=== PATIENT | female | born 1950 | race Hispanic/Latino ===

== ENCOUNTER 2018-01-13 14:24 | Inpatient (IN) | payer MEDICARE, OTHER ==
[2018-01-13 14:37] VITALS: BMI 24.2
[2018-01-13 15:25] LABS: VENOUS BLOOD GAS BASE EXCESS 6.9 mmol/L (0.0-2.0); VENOUS BLOOD GAS PO2 45 mm/Hg (30-55); VENOUS BLOOD PH 7.37 (7.32-7.43)
[2018-01-13 15:26] LABS: BASO # 0.03 K/mm3 (0.0-2.0); BASO % 0.4 % (0.0-3.0); EOS # 0.2 (0.0-0.7); EOS % 2.1 % (1.5-5.0); GRAN # 5.11 (1.4-6.5); GRAN % 65.7 % (50.0-68.0); HEMOGLOBIN 11.4 g/dL (12.0-16.0); LYMPH # 1.3 (1.2-3.4); LYMPH % 16.6 % (22.0-35.0); MEAN CELL VOLUME 85.9 fl (80.0-105.0); MEAN CORPUSCULAR HEMOGLOBIN 29.2 pg (25.0-35.0); MONO # 1.2 (0.1-0.6); MONO % 15.2 % (1.0-6.0); RBC 3.9 10^6/uL (3.5-6.1); RED CELL DISTRIBUTION WIDTH 13.5 % (11.5-14.5); WHITE BLOOD COUNT 7.8 10^3/ul (4.5-11.0)
[2018-01-13 15:37] LABS: INR 1.08 (0.93-1.08); PARTIAL THROMBOPLASTIN TIME 25.9 Seconds (25.1-36.5); PROTHROMBIN TIME 12.3 SECONDS (9.4-12.5)
[2018-01-13 15:52] LABS: B-TYPE NATRIURETIC PEPTIDE 883 pg/mL (0-450); TROPONIN I < 0.01 ng/mL
[2018-01-13 16:00] LABS: ALB/GLOB RATIO 1.2 (1.1-1.8); ALBUMIN 3.7 g/dL (3.0-4.8); ALT/SGPT 35 U/L (7-56); AST/SGOT 19 U/L (14-36); BLOOD UREA NITROGEN 19 mg/dL (7-21); GFR AFRICAN-AMERICAN > 60; GFR NON-AFRICAN AMERICAN > 60
--- NOTE | 2018-01-13 16:02 | RAD ---
HISTORY: SOB COMPARISON: 11/12/2017 FINDINGS: LUNGS: No active pulmonary disease. PLEURA: No significant pleural effusion identified, no pneumothorax apparent. CARDIOVASCULAR: Normal. OSSEOUS STRUCTURES: No significant abnormalities. VISUALIZED UPPER ABDOMEN: Normal. OTHER FINDINGS: None. IMPRESSION: No active disease.
[2018-01-13] MEDS ORDERED: Magnesium Sulfate 2 gm/50 ml 2 GM/50 ML BAG IVPB ONE (16:07)
[2018-01-13 16:28] LABS: URINE BILIRUBIN NEGATIVE (NEGATIVE); URINE BLOOD NEGATIVE (NEGATIVE); URINE GLUCOSE (UA) NEGATIVE (NEGATIVE); URINE LEUKOCYTE ESTERASE NEGATIVE Leu/uL (NEGATIVE); URINE PROTEIN NEGATIVE mg/dL (<30 mg/dL); URINE UROBILINOGEN 0.2 E.U./dL (<1 E.U./dL)
[2018-01-13 16:29] LABS: URINE APPEARANCE CLEAR (CLEAR); URINE COLOR YELLOW (YELLOW)
[2018-01-13 16:48] LABS: FREE T4 6.12 ng/dL (0.78-2.19)
--- NOTE | 2018-01-13 17:20 | ED PDOC ---
Arrival/HPI - General Chief Complaint: Weakness/Neurological Deficit Time Seen by Provider: 01/13/18 14:43 Historian: Patient - History of Present Illness Narrative History of Present Illness (Text): 01/13/18 17:11 67yo female with pmhx hypertension, hyperlipdemia referred to ED by Dr. Arguelles for evaluation of HASSAN x weeks and sudden drop of BP and generalized weakness today. Patient reports Parathyroidectomy a week ago. States HASSAN is getting worse. Denies chest pain, fever, chills, diaphoresis, nausea, abdominal pain, urinary symptoms, focal weakness, recent travel, any other complaint. Past Medical History - Provider Review Nursing Documentation Reviewed: Yes - Cardiac Hx Cardiac Disorders: Yes Hx Hypertension: Yes - Pulmonary Hx Respiratory Disorders: No - Neurological Hx Neurological Disorder: Yes Hx Alzheimer's Disease: No Hx Transient Ischemic Attacks (TIA): Yes - HEENT Hx HEENT Disorder: No - Renal Other/Comment: hyponatremia - Endocrine/Metabolic Hx Endocrine Disorders: Yes Other/Comment: Parathyroidectomy 01/07/18 - Hematological/Oncological Hx Blood Disorders: No - Integumentary Hx Dermatological Disorder: No - Musculoskeletal/Rheumatological Hx Falls: Yes - Gastrointestinal Hx Gastrointestinal Disorders: No - Genitourinary/Gynecological Hx Genitourinary Disorders: No - Psychiatric Hx Psychophysiologic Disorder: No Hx Depression: No Hx Emotional Abuse: No Hx Physical Abuse: No Hx Substance Use: No - Surgical History Hx Orthopedic Surgery: Yes (right arm) Hx Parathyroidectomy: Yes (01/07/18) - Suicidal Assessment Feels Threatened In Home Enviroment: No Family/Social History - Physician Review Nursing Documentation Reviewed: Yes Family/Social History: Unknown Family HX Smoking Status: Former Smoker Hx Alcohol Use: No Hx Substance Use: No Hx Substance Use Treatment: No Allergies/Home Meds Allergies/Adverse Reactions: Allergies codeine Allergy (Verified 01/06/16 16:56) NAUSEA moxifloxacin [From Avelox] Allergy (Verified 01/13/18 15:28) ANAPHYLAXIS oxycodone HCl [From Percocet] Allergy (Verified 01/06/16 16:56) NAUSEA Home Medications: Home Meds Medication Instructions Recorded Confirmed Atorvastatin [Lipitor] 1 tab PO DAILY 12/19/15 01/13/18 Aspirin [Aspirin Chewable] 81 mg PO DAILY 12/21/15 01/13/18 Carvedilol [Coreg] 12.5 mg PO BID 01/13/18 01/13/18 Review of Systems - Physician Review All systems were reviewed & negative as marked: Yes - Review of Systems Constitutional: Normal Eyes: Normal ENT: Normal Respiratory: Normal Cardiovascular: HASSAN. absent: Chest Pain Gastrointestinal: Normal Genitourinary Female: Normal Musculoskeletal: Normal Skin: Normal Neurological: Normal Endocrine: Normal Hemo/Lymphatic: Normal Psychiatric: Normal Physical Exam Vital Signs Reviewed: Yes Vital Signs Temp Pulse Resp BP Pulse Ox 01/13/18 18:43 100 H 18 126/65 99 01/13/18 15:15 98.3 F 93 H 20 140/77 95 Temperature: Afebrile Blood Pressure: Normal Pulse: Regular Respiratory Rate: Normal Appearance: Positive for: Well-Appearing, Non-Toxic, Comfortable Pain Distress: None Mental Status: Positive for: Alert and Oriented X 3 - Systems Exam Head: Present: Atraumatic, Normocephalic Pupils: Present: PERRL Extroacular Muscles: Present: EOMI Conjunctiva: Present: Normal Mouth: Present: Moist Mucous Membranes Neck: Present: Normal Range of Motion Respiratory/Chest: Present: Clear to Auscultation, Good Air Exchange. No: Respiratory Distress, Accessory Muscle Use, Wheezes, Decreased Breath Sounds, Rales, Retracting, Rhonchi Cardiovascular: Present: Regular Rate and Rhythm, Normal S1, S2. No: Murmurs Abdomen: No: Tenderness, Distention, Peritoneal Signs Back: Present: Normal Inspection Upper Extremity: Present: Normal Inspection. No: Cyanosis, Edema Lower Extremity: Present: Normal Inspection. No: Edema Neurological: Present: GCS=15, CN II-XII Intact, Speech Normal Skin: Present: Warm, Dry, Normal Color. No: Rashes Psychiatric: Present: Alert, Oriented x 3, Normal Insight, Normal Concentration Medical Decision Making - Lab Interpretations Lab Results: 01/13/18 15:21 01/13/18 15:21 Lab Results 01/13/18 16:17: Free T4 6.12 H, TSH 3rd Generation < 0.02 L 01/13/18 16:17: Urine Color Yellow, Urine Appearance Clear, Urine pH 6.0, Ur Specific [place] 1.010, Urine Protein Negative, Urine Glucose (UA) Negative, Urine Ketones Trace H, Urine Blood Negative, Urine Nitrate Negative, Urine Bilirubin Negative, Urine Urobilinogen 0.2, Ur Leukocyte Esterase Negative 01/13/18 15:21: Sodium 133, Chloride 90 L, Potassium 3.7, Carbon Dioxide 30, Anion Gap 17, BUN 19, Creatinine 0.8, Est GFR ( Amer) > 60, Est GFR (Non- Af Amer) > 60, Random Glucose 103, Calcium 9.0, Magnesium 0.8 L*, Total Bilirubin 0.6, AST 19, ALT 35, Alkaline Phosphatase 72, Lactate Dehydrogenase 477, Total Creatine Kinase 38, Troponin I < 0.01, NT-Pro-B Natriuret Pep 883 H, Total Protein 6.8, Albumin 3.7, Globulin 3.1, Albumin/Globulin Ratio 1.2 01/13/18 15:21: pO2 45, VBG pH 7.37, VBG pCO2 59.0, VBG HCO3 34.1 H, VBG Total CO2 35.9 H, VBG O2 Sat (Calc) 82.2 H, VBG Base Excess 6.9 H, VBG Potassium 3.8, Sodium 131.0 L, Chloride 91.0 L, Glucose 105, Lactate 1.3, FiO2 21.0, Venous Blood Potassium 3.8 01/13/18 15:21: PT 12.3, INR 1.08, APTT 25.9, D-Dimer, Quantitative 521 H 01/13/18 15:21: WBC 7.8, RBC 3.90, Hgb 11.4 L, Hct 33.5 L, MCV 85.9, MCH 29.2, MCHC 34.0, RDW 13.5, Plt Count 297, MPV 10.0, Gran % 65.7, Lymph % (Auto) 16.6 L , [place] % (Auto) 15.2 H, Eos % (Auto) 2.1, Baso % (Auto) 0.4, Gran # 5.11, Lymph # (Auto) 1.3, [place] # (Auto) 1.2 H, Eos # (Auto) 0.2, Baso # (Auto) 0.03 - RAD Interpretation Radiology Orders: 01/13/18 14:52 CHEST PORTABLE [RAD] Stat 01/13/18 16:32 ANGIO CHEST PE PROTOCOL [CT] Stat 01/13/18 17:30 THYROID [US] Stat - Medication Orders Current Medication Orders: Acetaminophen (Tylenol 325mg Tab) 650 mg PO Q6 PRN PRN Reason: Pain, Mild (1-3) Amlodipine Besylate (Norvasc) 5 mg PO DAILY [facility] Aspirin (Aspirin Chewable) 81 mg PO DAILY [facility]SE MIGUEL Atorvastatin Calcium (Lipitor) 20 mg PO DAILY [facility] Carvedilol (Coreg) 6.25 mg PO BID [facility] Enoxaparin Sodium (Lovenox) 40 mg SC DAILY JOSE MIGUEL PRN Reason: Protocol Furosemide (Lasix) 40 mg PO DAILY JOSE MIGUEL Magnesium Oxide (Mag-Ox) 400 mg PO BID [facility]SE MIGUEL Discontinued Medications Furosemide (Lasix) 40 mg IVP STAT STA Stop: 01/13/18 18:11 Magnesium Sulfate (Magnesium Sulfate 2 Gm/50 Ml Water) 2 gm in 50 mls @ 50 mls/ hr IVPB ONCE ONE Stop: 01/13/18 17:06 Magnesium Oxide (Mag-Ox) 800 mg PO STAT STA Stop: 01/13/18 18:08 Disposition/Present on Arrival - Present on Arrival Any Indicators Present on Arrival: No History of DVT/PE: Yes History of Uncontrolled Diabetes: Yes Urinary Catheter: Yes History of Decub. Ulcer: No History Surgical Site Infection Following: None - Disposition Have Diagnosis and Disposition been Completed?: Yes Diagnosis: Hypomagnesemia, COPD (chronic obstructive pulmonary disease) Disposition: HOSPITALIZED Disposition Time: 17:15 Patient Plan: Admission Condition: STABLE
[2018-01-13] MEDS ORDERED: Iohexol 350 MG/100 ML VIAL ONE (17:56)
[2018-01-13] MEDS ORDERED: Magnesium Oxide 400 mg Tab UD PO STA (18:07)
--- NOTE | 2018-01-13 18:32 | CP.PCM.HP ---
History of Present Illness - History of Present Illness History of Present Illness: 67 year old female with a past medical history of hypertension, dyslipidemia, hypercalcemia secondary hyperparathyroidism s/p removal of two parathyroid adenomas on 01/07/18 who presents with generalized weakness and nausea for the past three days. She also complains of exertional dyspnea for the past 6 months with only being able to walk only one block before experiencing dyspnea and having to rest for a few minutes to catch her breath. She also reports expericing chest pain from time to time with exertion. Today she went to her PMD 's office, Dr. Arguelles, for evaluation of her generalized weakness and after she noted a blood pressure reading of 88/40 yesterday. She aptly did not take her usual antihypertensive medications, aside from the Coreg. She also had an EKG performed in her PMD that was showed changes compared to prior. She denies any headache, fever, chills, vomiting, changes in bowel movement, muscle twitches or sensory or motor disturbances/deficits. PMH: hypertension, dyslipidemia, hypercalcemia secondary to hyperparathyroidism , ex-smoker with an estimated 60 pack year history, and GERD Past Surgical History: right humerus fracture with repair and removal of 2 parathyroid glands/adenomas Allergies: Codeine, Moxifloxacin, oxycodone Social: former smoker with an estimated 60 pack year history, denies alcohol, or illicit drug use Present on Admission - Present on Admission Any Indicators Present on Admission: No Review of Systems - Review of Systems All systems: reviewed and no additional remarkable complaints except (as per HPI ) Past Patient History - Past Social History Smoking Status: Former Smoker - CARDIAC Hx Cardiac Disorders: Yes Hx Hypertension: Yes - PULMONARY Hx Respiratory Disorders: No - NEUROLOGICAL Hx Neurological Disorder: Yes Hx Alzheimer's Disease: No Hx Transient Ischemic Attacks (TIA): Yes - HEENT Hx HEENT Problems: No - RENAL Other/Comment: hyponatremia - ENDOCRINE/METABOLIC Hx Endocrine Disorders: Yes Other/Comment: Parathyroidectomy 01/07/18 - HEMATOLOGICAL/ONCOLOGICAL Hx Blood Disorders: No - INTEGUMENTARY Hx Dermatological Problems: No - MUSCULOSKELETAL/RHEUMATOLOGICAL Hx Falls: Yes - GASTROINTESTINAL Hx Gastrointestinal Disorders: No - GENITOURINARY/GYNECOLOGICAL Hx Genitourinary Disorders: No - PSYCHIATRIC Hx Psychophysiologic Disorder: No Hx Depression: No Hx Emotional Abuse: No Hx Physical Abuse: No Hx Substance Use: No - SURGICAL HISTORY Hx Orthopedic Surgery: Yes (right arm) Hx Parathyroidectomy: Yes (01/07/18) Meds Allergies/Adverse Reactions: Allergies Allergy/AdvReac Type Severity Reaction Status Date / Time codeine Allergy NAUSEA Verified 01/06/16 16:56 moxifloxacin [From Avelox] Allergy ANAPHYLAXIS Verified 01/13/18 15:28 oxycodone HCl [From Percocet] Allergy NAUSEA Verified 01/06/16 16:56 Physical Exam - Constitutional Appears: Non-toxic, No Acute Distress - Head Exam Head Exam: ATRAUMATIC, NORMOCEPHALIC - Eye Exam Eye Exam: EOMI, Normal appearance - ENT Exam ENT Exam: Mucous Membranes Moist - Neck Exam Additional comments: transverse incision 3 inches located above suprasternal notch - Respiratory Exam Respiratory Exam: Decreased Breath Sounds (lung bases bilaterally). absent: Accessory Muscle Use - Cardiovascular Exam Cardiovascular Exam: Tachycardia, +S1, +S2 - GI/Abdominal Exam GI & Abdominal Exam: Normal Bowel Sounds, Soft - Extremities Exam Extremities exam: Positive for: normal inspection. Negative for: calf tenderness - Neurological Exam Neurological exam: Alert, CN II-XII Intact, Oriented x3 - Psychiatric Exam Psychiatric exam: Normal Affect, Normal Mood - Skin Skin Exam: Dry, Intact, Normal Color, Warm Results - Vital Signs Recent Vital Signs: Last Vital Signs Temp 98.3 F 01/13/18 15:15 Pulse 93 H 01/13/18 15:15 Resp 20 01/13/18 15:15 BP 140/77 01/13/18 15:15 Pulse Ox 95 01/13/18 15:15 - Labs Result Diagrams: 01/13/18 15:21 01/13/18 15:21 Assessment & Plan - Assessment and Plan (Free Text) Assessment: 67 year old female with a past medical history of hypertension, dyslipidemia, hypercalcemia secondary to hyperparathyroidism s/p removal of two parathyroidectomy on 01/07/18, and GERD who presents with 6 months of exertional dyspnea, associated chest pain, and 5 days of generalized weakness. Initial diagnostic test revealed a D-dimer of 521, NT-Pro-BNP of 883, Magnesium of 0.8, Thyroxine of 6.12, and a TSH less than 0.02. Plan: 1) Chest pain rule out ACS - EKG showed sinus rhythm with premature atrial complexes with aberrant conduction and possible atrial enlargement - Troponin x1 negative, repeat x 2 - Cardiology consulted, Dr. Velez 2) Rule out new-onset CHF - Pro-BNP elevated at 883 in the ED - Lasix 40 mg IVP given in the ED - Cardiology consulted, Dr. Velez 3) Elevated D-dimer - CT per PE protocol negative for pulmonary embolus but reads as follows: PULMONARY ARTERIES: Unremarkable. No pulmonary embolism. AORTA: No acute findings. No thoracic aortic aneurysm. LUNGS: Although no infiltrate is appreciate bilaterally, a 6.6 x 3.4 cm mass is seen at the right lower lobe base within the posterior costophrenic sulcus clearly above the diaphragm and posterior to it but of uncertain etiology. This may represent extramedullary hematopoiesis with pulmonary neoplasm not favored but not completely excluded. Dense atelectasis is a limited possibility as well. No air bronchograms associated to suggest pneumonia. No definite left pulmonary mass. Central airways appear clear. PLEURAL SPACES: Unremarkable. No effusion or pneuomothorax. HEART: Unremarkable. No cardiomegaly. No significant pericardial effusion. LYMPH NODES: No significant lymphadenopathy. Shotty paratracheal lymph nodes are identified. BONES, CHEST WALL: Unremarkable. No fracture or destructive lesion OTHER FINDINGS: Moderate hiatal hernia at the inferior middle centrilobular emphysematous changes are identified, apical predominant without definitive discrete mass identified. Mediastinum. IMPRESSION: 1. No CT evidence of pulmonary embolus. 2. 6.6 cm mass is seen in the right lung in the posterior sulcus nonspecific in appearance. Please see different diagnosis above. Neoplasm not favored but is not excluded here. Further clinical correlation is recommended. 3. Centrilobular emphysema and COPD identified. 4) Hypertension - Coreg 6.25 mg BID - Amlodipine 5 mg (held) 5) Dyslipidemia - Continue atorvastatin 20 mg HS 6) Primary prevention - Aspirin 81 mg PO daily 7) Elevated thyroxine and low TSH after parathyroid removal - thyroid US 8) Underlying COPD - Will further discuss this with the patient 9) Hypomagnesemia - 2 gram IVP given in ED - Magnesium Oxide 400 mg BID daily 10) DVT/GI prophylaxis - Lovenox 40 mg SC daily - Protonix 40 mg PO daily Case reviewed and discussed with attending physician Dr. Hussein 1 - Date & Time Date: 01/13/18 Time: 19:37
--- NOTE | 2018-01-13 18:43 | CT ---
PROCEDURE: CT Chest with contrast (Pulmonary Angiogram) HISTORY: HASSAN COMPARISON: None available. TECHNIQUE: Axial computed tomography images were obtained of the chest in the pulmonary arterial phase of enhancement. Coronal and sagittal reformatted images were created and reviewed. Intravenous contrast dose: Omnipaque 350, 96 cc Radiation dose: Total exam DLP = 351.48 mGy-cm. This CT exam was performed using one or more of the following dose reduction techniques: Automated exposure control, adjustment of the mA and/or kV according to patient size, and/or use of iterative reconstruction technique. FINDINGS: PULMONARY ARTERIES: Unremarkable. No pulmonary embolism. AORTA: No acute findings. No thoracic aortic aneurysm. LUNGS: Although no infiltrate is appreciate bilaterally, a 6.6 x 3.4 cm mass is seen at the right lower lobe base within the posterior costophrenic sulcus clearly above the diaphragm and posterior to it but of uncertain etiology. This may represent extramedullary hematopoiesis with pulmonary neoplasm not favored but not completely excluded. Dense atelectasis is a limited possibility as well. No air bronchograms associated to suggest pneumonia. No definite left pulmonary mass. Central airways appear clear. PLEURAL SPACES: Unremarkable. No effusion or pneuomothorax. HEART: Unremarkable. No cardiomegaly. No significant pericardial effusion. LYMPH NODES: No significant lymphadenopathy. Shotty paratracheal lymph nodes are identified. BONES, CHEST WALL: Unremarkable. No fracture or destructive lesion OTHER FINDINGS: Moderate hiatal hernia at the inferior middle centrilobular emphysematous changes are identified, apical predominant without definitive discrete mass identified. Mediastinum. IMPRESSION: 1. No CT evidence of pulmonary embolus. 2. 6.6 cm mass is seen in the right lung in the posterior sulcus nonspecific in appearance. Please see different diagnosis above. Neoplasm not favored but is not excluded here. Further clinical correlation is recommended. 3. Centrilobular emphysema and COPD identified.
[2018-01-13] MEDS ORDERED: Albuterol-Ipratrop 3 mg / 0.5 (3 ml) UD IH STA (18:47)
[2018-01-14] MEDS: Pantoprazole 20 mg EC Tab PO SCH (06:00)
[2018-01-14 07:27] LABS: BASO # 0.02 K/mm3 (0.0-2.0); BASO % 0.3 % (0.0-3.0); EOS # 0.3 (0.0-0.7); GRAN % 57.6 % (50.0-68.0); HEMOGLOBIN 10.7 g/dL (12.0-16.0); LYMPH # 1.2 (1.2-3.4); LYMPH % 17.8 % (22.0-35.0); MEAN CORPUSCULAR HEMOGLOBIN 29.1 pg (25.0-35.0); MEAN CORPUSCULAR HGB CONC 33.4 g/dl (31.0-37.0); MONO # 1.4 (0.1-0.6); MONO % 20.3 % (1.0-6.0); PLATELET COUNT 269 10^3/uL (120.0-450.0); RBC 3.68 10^6/uL (3.5-6.1); RED CELL DISTRIBUTION WIDTH 13.6 % (11.5-14.5); WHITE BLOOD COUNT 6.8 10^3/ul (4.5-11.0)
[2018-01-14 07:37] LABS: ALB/GLOB RATIO 1.2 (1.1-1.8); ALBUMIN 3.6 g/dL (3.0-4.8); ALT/SGPT 30 U/L (7-56); AST/SGOT 20 U/L (14-36); BLOOD UREA NITROGEN 16 mg/dL (7-21); CALCIUM 9.6 mg/dL (8.4-10.5); GFR AFRICAN-AMERICAN > 60; GFR NON-AFRICAN AMERICAN 55
[2018-01-14] MEDS ORDERED: Albuterol-Ipratrop 3 mg / 0.5 (3 ml) UD IH PRN (07:48)
--- NOTE | 2018-01-14 08:20 | CARD ---
APPROVED REPORT EKG Measurement Heart [id number] <Conclusion> Sinus rhythm with premature atrial complexes with aberrant conduction Possible Left atrial enlargement Borderline ECG
[2018-01-14 09:11] LABS: NEUTROPHIL 67 % (50.0-70.0)
[2018-01-14 09:12] LABS: BASOPHIL 1 % (0.0-1.0); EOSINOPHIL 5 % (0.0-3.0); LYMPHOCYTE 15 % (22.0-35.0); MONOCYTE 12 % (1.0-6.0); PLATELET ESTIMATE NORMAL (NORMAL)
[2018-01-14] MEDS: Calcium-Vit D 250 mg-125 Units Tab UD PO SCH ×2 (09:22→18:43)
[2018-01-14] MEDS: Enoxaparin 40 mg Syringe SC SCH (09:22)
[2018-01-14] MEDS ORDERED: Aminophylline 25 mg/ml Inj ONE (09:36)
--- NOTE | 2018-01-14 09:38 | CARD ---
APPROVED REPORT EXAM: Two-dimensional and M-mode echocardiogram with Doppler and color Doppler. INDICATION Dyspnea EF 2D DIMENSIONS Left Atrium (2D)2.9 (1.6-4.0cm)IVSd0.9 (0.7-1.1cm) LVDd3.1 (3.9-5.9cm)PWd1.0 (0.7-1.1cm) LVDs2.2 (2.5-4.0cm)FS (%) 28.9 % LVEF (%)57.1 (>50%) M-Mode DIMENSIONS Aortic Root2.80 (2.2-3.7cm)Aortic Cusp Exc.1.40 (1.5-2.0cm) Aortic Valve AoV Peak Skvlfkai791.0cm/[place] Peak GR.19mmHg Mitral Valve MV E Pvvnorhj02.3cm/sMV A Pwuhycyu653.0cm/sE/A ratio0.8 TDI E/Lateral E'0.0E/Medial E'0.0 Tricuspid Valve TR Peak [id number] [id number] Peak Gr.54mmHg [id number] LEFT VENTRICLE There is borderline concentric left ventricular hypertrophy. The left ventricular function is normal. The left ventricular ejection fraction is within the normal range. RIGHT VENTRICLE The right ventricle is normal size. ATRIA The left atrium is mildly dilated. The right atrium size is normal. AORTIC VALVE The aortic valve is calcified but opens well. MITRAL VALVE The mitral valve is thickened but opens well. TRICUSPID VALVE The tricuspid valve leaflets are thickened , but open well. There is mild to moderate tricuspid regurgitation. There is moderate pulmonary hypertension. PULMONIC VALVE The pulmonic valve is not well visualized. PERICARDIAL EFFUSION There is no pericardial effusion. <Conclusion> Good LV systolic function Borderline LVH AoV sclerosis without stenosis DIlated LA Moderate TR Moderate pulmonary hypertension
[2018-01-14] MEDS ORDERED: Magnesium Sulfate 2 GM in Sodium Chloride 0.9% 100 ML IV ONE (09:49)
[2018-01-14] MEDS ORDERED: Magnesium Sulfate 2 gm/50 ml 2 GM/50 ML BAG IV ONE (09:55)
[2018-01-14] MEDS ORDERED: Magnesium Oxide 400 mg Tab UD PO SCH (10:00)
[2018-01-14] MEDS ORDERED: Calcium-Vit D 250 mg-125 Units Tab UD PO SCH (10:00)
[2018-01-14] MEDS ORDERED: Magnesium Sulfate 2 gm/50 ml 2 GM/50 ML BAG IVPB ONE (10:03)
--- NOTE | 2018-01-14 17:05 | CP.PCM.PN ---
<Maxi Cole - Last Filed: 01/14/18 19:27> Subjective - Date & Time of Evaluation Date of Evaluation: 01/14/18 Time of Evaluation: 17:21 - Subjective Subjective: Maxi Cole DO, PGY-1: Hospitalist Service Patient seen and examined at bedside. Patient reports still feeling weak and has some nausea also. She is aware of the plan to undergo a transthoracic echocardiogram, nuclear stress test, and also a biopsy of the right lung mass identified on CT. She is also NPO. Nurse report no untoward events overnight. Objective - Vital Signs/Intake and Output Vital Signs (last 24 hours): Temp Pulse Resp BP Pulse Ox 98.0 F 95 H 20 137/54 L 95 01/14/18 06:00 01/14/18 06:00 01/14/18 06:00 01/14/18 06:00 01/14/18 06:00 - Medications Medications: Current Medications Acetaminophen (Tylenol 325mg Tab) 650 mg PO Q6 PRN PRN Reason: Pain, Mild (1-3) Last Admin: 01/14/18 05:58 Dose: 650 mg Albuterol/Ipratropium (Duoneb 3 Mg/0.5 Mg (3 Ml) Ud) 3 ml IH [id number] PRN PRN Reason: Shortness of Breath Aspirin (Aspirin Chewable) 81 mg PO DAILY [facility] Last Admin: 01/14/18 09:21 Dose: Not Given Atorvastatin Calcium (Lipitor) 20 mg PO DAILY [facility] Last Admin: 01/14/18 09:22 Dose: Not Given Calcium/Vitamin D (Oscal-D 250 Mg-125 Units Tab) 2 tab PO BID [facility] Last Admin: 01/14/18 09:22 Dose: Not Given Carvedilol (Coreg) 6.25 mg PO BID [facility] Last Admin: 01/14/18 09:21 Dose: Not Given Enoxaparin Sodium (Lovenox) 40 mg SC DAILY [facility] PRN Reason: Protocol Last Admin: 01/14/18 09:22 Dose: Not Given Furosemide (Lasix) 40 mg PO DAILY [facility] Last Admin: 01/14/18 09:21 Dose: Not Given Methimazole (Tapazole) 10 mg PO TID [facility] Last Admin: 01/14/18 13:32 Dose: 10 mg Pantoprazole Sodium (Protonix Ec Tab) 20 mg PO 0600 [facility] Last Admin: 01/14/18 06:00 Dose: 20 mg - Labs Labs: PT 12.3 SECONDS (9.4-12.5) 01/13/18 15:21 INR 1.08 (0.93-1.08) 01/13/18 15:21 APTT 25.9 Seconds (25.1-36.5) 01/13/18 15:21 - Constitutional Appears: Non-toxic - Head Exam Head Exam: ATRAUMATIC, NORMOCEPHALIC - Eye Exam Eye Exam: EOMI, Normal appearance - ENT Exam ENT Exam: Mucous Membranes Moist, Normal Oropharynx - Neck Exam Additional comments: surgical incision noted above suprasternal notch - Respiratory Exam Respiratory Exam: Prolonged Expiratory Phase - Cardiovascular Exam Cardiovascular Exam: RRR, +S1, +S2 - GI/Abdominal Exam GI & Abdominal Exam: Soft, Normal Bowel Sounds - Extremities Exam Extremities Exam: Normal Inspection. absent: Calf Tenderness - Neurological Exam Neurological Exam: Alert, Awake, Oriented x3 Neuro motor strength exam: Left Upper Extremity: 5, Right Upper Extremity: 5, Left Lower Extremity: 5, Right Lower Extremity: 5 - Psychiatric Exam Psychiatric exam: Normal Affect, Normal Mood - Skin Skin Exam: Dry, Intact, Normal Color, Warm Assessment and Plan - Assessment and Plan (Free Text) Assessment: 67 year old female with a past medical history of hypertension, dyslipidemia, hypercalcemia secondary to hyperparathyroidism s/p removal of two parathyroidectomy on 01/07/18, and GERD who presents with 6 months of exertional dyspnea, associated chest pain, and 5 days of generalized weakness. Initial diagnostic test revealed a D-dimer of 521, NT-Pro-BNP of 883, Magnesium of 0.8, Thyroxine of 6.12, and a TSH less than 0.02. Plan: 1) Chest pain rule out ACS - EKG showed sinus rhythm with premature atrial complexes with aberrant conduction and possible atrial enlargement - Troponin x3 negative - Cardiology consulted, Dr. Velez - Nuclear stress test performed, interpretation pending 2) Rule out CHF - Pro-BNP elevated at 883 in the ED - Lasix 40 mg PO Daily - Echocardiogram shows good systolic function with estimated ejection fraction of 57%, borderline Left Ventricular Hypertrophy, Aortic valve sclerosis without stenosis, dilated left atrium, moderate tricuspid regurgitation, moderate pulmonary hypertension. - Cardiology consulted, Dr. Velez 3) Elevated D-dimer - CT per PE protocol negative for pulmonary embolus but reads as follows: PULMONARY ARTERIES: Unremarkable. No pulmonary embolism. AORTA: No acute findings. No thoracic aortic aneurysm. LUNGS: Although no infiltrate is appreciate bilaterally, a 6.6 x 3.4 cm mass is seen at the right lower lobe base within the posterior costophrenic sulcus clearly above the diaphragm and posterior to it but of uncertain etiology. This may represent extramedullary hematopoiesis with pulmonary neoplasm not favored but not completely excluded. Dense atelectasis is a limited possibility as well. No air bronchograms associated to suggest pneumonia. No definite left pulmonary mass. Central airways appear clear. PLEURAL SPACES: Unremarkable. No effusion or pneuomothorax. HEART: Unremarkable. No cardiomegaly. No significant pericardial effusion. LYMPH NODES: No significant lymphadenopathy. Shotty paratracheal lymph nodes are identified. BONES, CHEST WALL: Unremarkable. No fracture or destructive lesion OTHER FINDINGS: Moderate hiatal hernia at the inferior middle centrilobular emphysematous changes are identified, apical predominant without definitive discrete mass identified. Mediastinum. IMPRESSION: - No CT evidence of pulmonary embolus. - 6.6 cm mass is seen in the right lung in the posterior sulcus nonspecific in appearance. Please see different diagnosis above. Neoplasm not favored but is not excluded here. Further clinical correlation is recommended. - Centrilobular emphysema and COPD identified. 4) Right lower lobe lung mass (identified by CT) - Dr. Raul Perez to perform CT-guided biopsy - Chest X-ray ordered following procedure 5) Hypertension - Coreg 6.25 mg BID - Amlodipine 5 mg 6) Dyslipidemia - Continue atorvastatin 20 mg HS 6) Primary prevention - Aspirin 81 mg PO daily 7) Elevated thyroxine and low TSH after parathyroid surgery - Thyroid US Impression: as Potential trace seroma tear or chronic hematomas are seen in the periphery of both left and right thyroid lobes with abscesses not favored. History of the patient reveals recently underwent parathyroidectomy. Consider postoperative change. Multiple nodules are scattered at the bilateral thyroid lobes with dominant nodules as described above. Numerous nodules are more frequent at the right than left sides. Clinically correlate. Consider ultrasound follow-up as indicated. - Dr. Finley, campus administrator, consulted, who started patient on Methimazole 10 mg TID - Follow up TSH, Free T4, thyroid peroxidase antibodies, T3 and TSI 8) Underlying COPD clinically and based on imaging - Duoneb q4h PRN for shortness of breath - Pulmonology consulted, Dr. Kevin Bautista 9) Hypo/hypermagnesemia - Recheck in AM - Replete as needed 10) Calcium and Vitamin D therapy s/p parathyroidectomy - Continue home medication - 11) DVT/GI prophylaxis - Lovenox 40 mg SC - Protonix 20 mg PO daily Case reviewed and discussed with attending physician, Dr. Cr <Abdulkadir Cr - Last Filed: 01/15/18 07:17> Objective - Vital Signs/Intake and Output Vital Signs (last 24 hours): Temp Pulse Resp BP Pulse Ox 98.7 F 95 H 20 149/74 96 01/15/18 06:00 01/15/18 06:00 01/15/18 06:00 01/15/18 06:00 01/15/18 06:00 Intake and Output: 01/15/18 01/15/18 06:59 18:59 Intake Total 420 Balance 420 - Medications Medications: Current Medications Acetaminophen (Tylenol 325mg Tab) 650 mg PO Q6 PRN PRN Reason: Pain, Mild (1-3) Last Admin: 01/14/18 18:47 Dose: 650 mg Albuterol/Ipratropium (Duoneb 3 Mg/0.5 Mg (3 Ml) Ud) 3 ml IH Q2H PRN PRN Reason: Shortness of Breath Albuterol/Ipratropium (Duoneb 3 Mg/0.5 Mg (3 Ml) Ud) 3 ml IH TIDRESP [facility] Aspirin (Aspirin Chewable) 81 mg PO DAILY [facility] Last Admin: 01/14/18 09:21 Dose: Not Given Atorvastatin Calcium (Lipitor) 20 mg PO DAILY [facility] Last Admin: 01/14/18 09:22 Dose: Not Given Budesonide (Pulmicort Respules) 0.5 mg IH [id number] [facility] Calcium/Vitamin D (Oscal-D 250 Mg-125 Units Tab) 2 tab PO BID [facility] Last Admin: 01/14/18 18:43 Dose: Not Given Carvedilol (Coreg) 6.25 mg PO BID [facility] Last Admin: 01/14/18 18:47 Dose: 6.25 mg Enoxaparin Sodium (Lovenox) 40 mg SC DAILY [facility] PRN Reason: Protocol Last Admin: 01/14/18 09:22 Dose: Not Given Furosemide (Lasix) 40 mg PO DAILY [facility] Last Admin: 01/14/18 09:21 Dose: Not Given Methimazole (Tapazole) 10 mg PO TID [facility] Last Admin: 01/14/18 18:47 Dose: 10 mg Ondansetron HCl (Zofran Inj) 4 mg IVP Q6H PRN PRN Reason: Nausea/Vomiting Pantoprazole Sodium (Protonix Ec Tab) 20 mg PO 0600 [facility] Last Admin: 01/15/18 05:56 Dose: 20 mg - Labs Labs: PT 12.3 SECONDS (9.4-12.5) 01/13/18 15:21 INR 1.08 (0.93-1.08) 01/13/18 15:21 APTT 25.9 Seconds (25.1-36.5) 01/13/18 15:21 Attending/Attestation - Attestation I have personally seen and examined this patient.: Yes I have fully participated in the care of the patient.: Yes I have reviewed all pertinent clinical information, including history, physical exam and plan: Yes Notes (Text): 01/14/18 67 year old female with past medical history of hypertension, dyslipidemia, hyperparathyroidism s/p parathyroidectomy, and history of tobacco use presented with complaint of chest pain and dyspnea. Serial cardiac enzymes were negative and ACS was ruled out. Probnp was mildly elevated. Will review echo. She was seen by cardiology and underwent cardiac stress test this morning. Will follow up with results. CT chest study was negative for PE but showed 6.6 x 3.4 cm lung mass in the right lower lobe. Pulmonary evaluation and IR evaluation for lung biopsy was requested. TSH is low with elevated FT4. Endocrinology evaluation was requested who started methimazole. Will follow up on thyroid US. Will replete and repeat lytes. Patient was counselled on smoking abstinence. Abdulkadir Cr MD Hospitalist.
[2018-01-14] MEDS ORDERED: Midazolam 2 MG/2 ML VIAL ONE (17:07)
[2018-01-14] MEDS ORDERED: Lidocaine 1% Inj (20ml) ONE (17:07)
[2018-01-14] MEDS ORDERED: Sodium Chloride 0.45% 1,000 ML IV SCH (18:00)
--- NOTE | 2018-01-14 18:57 | US ---
HISTORY: recent parathyroidectomy TECHNIQUE: Sonographic evaluation of the thyroid gland. COMPARISON: None available. FINDINGS: RIGHT LOBE: Measures 4.9 x 2.3 x 2.3 cm. Heterogeneous architecture seen diffusely with no suspicious color Doppler blood flow pattern. Multiple lines nodules scattered in the right lobe with the dominant nodule identified upper pole measure 1.0 x 1.0 x 1.1 cm nearly isoechoic to the surrounding parenchyma with borderline increased color Doppler blood flow. The right lobe is upper limits normal size. LEFT LOBE: Measures 5.1 x 2.1 x 2.0 cm. Multiple left lobe nodules are identified with the dominant nodule appearing hypoechoic measuring 1.0 x 1.5 x 1.2 at cm at the lower pole region. This nodule appears avascular. Two other subcentimeter nodules are identified at the mid and lower pole left lobe. The left lobe is borderline enlarged. ISTHMUS: Measures 0.3 cm. Normal echotexture and flow. OTHER FINDINGS: Limited mildly heterogeneous fluid is seen in the periphery of both thyroid lobes without associated hyperemia in the periphery. IMPRESSION: Potential trace seroma tear or chronic hematomas are seen in the periphery of both left and right thyroid lobes with abscesses not favored. His into the patient recently underwent parathyroidectomy. Consider postoperative change. Multiple nodules are scattered at the bilateral thyroid lobes with dominant nodules as described above. Numerous nodules are more frequent at the right than left sides. Clinically correlate. Consider ultrasound follow-up as indicated.
--- NOTE | 2018-01-14 19:41 | CT ---
PROCEDURE: CT guided right lower lobe lung biopsy. HISTORY: Right lower lobe lung mass. Smoker. Evaluate for malignancy. PHYSICIAN(S): Raul Perez MD. TECHNIQUE: The relative risks and indications of the procedure were explained to the patient and consent obtained. The patient was placed prone on the CT scanner and preliminary images through the lung bases obtained. Conscious sedation and monitoring were provided throughout the procedure by a nurse. There is a 3.5 x 6.3 cm opacity at the right lung base posteriorly. A right posterior approach was selected and the area prepped and draped in the usual sterile fashion. 1% Xylocaine was used to anesthetize the skin and soft tissues. A 19 gauge guiding needle was advanced into the 3.5 x 6.3 cm opacity.. Its position was confirmed with CT. No fluid was aspirated. Using coaxial technique, multiple core biopsies were obtained. The postprocedure images show no evidence of large pneumothorax or significant hemorrhage.. IMPRESSION: 1. CT-guided right lower lobe lung biopsy as described above.
--- NOTE | 2018-01-14 21:12 | CARD ---
APPROVED REPORT Protocol: LEXISCAN Test Type: Lexiscan Sestamibi Stress Test Attending Physician: Dr. Raul Velez Referring Physician: Dr. Seb Arguelles Test Indications: Dyspnea Height:5 ft 6 in Weight:151lbs Medications: Oscal, Coreg, Aspirin, Lipitor, Lovenox, Lasix, Mag-ox, Protonix Medical History: 67 y/o female with a history of htn, hyperlipidemia, hyperparathyroidism Target HR: 151 bpm Resting ECG: Right axis Resting Heart Rate: 97 bpm Resting Blood Pressure: 150/80mmHg Submaximum (85%): 128 bpm PROCEDURE Pharmacologic stress testing was performed using 0.4mg per 5ml of regadenoson given intravenously over 7-10 seconds. Reversal agent aminophyline 50 mg, given intravenously for Other. POST EXERCISE Reason for Termination: Protocol completed Target HR: No Max HR: 95 bpm 75% of Maximum Predicted HR: 151 bpm Exercise duration: 05:16 min:sec, 0 Stage Exercise capacity: 1.0METs Max Blood Pressure: 150/80mmHg Blood Pressure response to exercise: normal resting BP - appropriate response Heart Rate response to exercise: appropriate Chest Pain: No, none Angina index: 0 Arrhythmia: Yes, ventricular premature beats ST Change: No, none Deviation: 0 mm TEST SUMMARY [id number]. INFUSIONDOSE 101:[id number]/.15. INFUSIONDOSE 201:[id number]/.18. INFUSIONDOSE 301:[id number]/70.22. INFUSIONDOSE 401:[id number]/70.22. INFUSIONDOSE 501:000.00.01.096/.18. INFUSIONDOSE 600:150.00.01.095/.16. INTERPRETATION Stress EKG Conclusion: Lexiscan performed without complications....nuclear results pending Signed by Raul Velez Electronically Approved: 01/14/2018 11:54:06 EXAM: Myocardial Perfusion REST/STRESS Stress Test Type: Pharmacologic Imaging Protocol Rest Spect myocardial perfusion imaging was performed in supine position 45 minutes following the injection of 10.3 mCi of Tc-99 Myoview. At peak stress, the patient was injected intravenously with 30.9mCi of Tc-99 tetrofosmin after an infusion time of 0 minutes and 10 seconds. Gated Stress Spect was performed 65 minutes after intravenous Tc-99 Myoview injection. The images were gated to evaluate regional wall motion and calculate ventricular ejection fraction.Images were reconstructed using backfilter projection method in short horizontal and verticle long axis. Spect slices were generated. LV Perfusion The quality of the study is good. The left ventricle is normal in size. The right ventricle is unremarkable. The lung uptake is within normal limits. The distribution of tracer reveals normal uptake pattern throughout the LV myocardium on the stress study. The rest myocardial perfusion study shows no significant change. Wall Motion Wall motion study shows good contractility of the left ventricle. LVEF = 64%. Conclusion 1. Normal SPECT myocardial perfusion study. 2. Normal gated wall motion of the left ventricle.
--- NOTE | 2018-01-15 05:08 | CON ---
DATE: 01/14/2018 ENDOCRINOLOGY CONSULT LOCATION: In room 269, [address]. HISTORY OF PRESENT ILLNESS: This is a 67-year-old female with known history of hypertension and dyslipidemia, presenting here with generalized body weakness and progressively worsening shortness of breath initially on exertion and then at rest with supervening precordial chest pain and is now being referred for evaluation of abnormal thyroid function studies. PAST MEDICAL HISTORY: As mentioned above, history of hypertension and dyslipidemia, controlled on medications. History of primary hyperparathyroidism and hypercalcemia and underwent a parathyroid resection and has since then remained normal to the present time. History of a previous right humeral fracture with subsequent orthopedic repair undertaken. FAMILY HISTORY: Positive for hypertension and heart disease. No known thyroid endocrinopathy noted. SOCIAL HISTORY: The patient has supportive family but has a significant history of previous nicotine dependence with an estimated [id number] history as noted. REVIEW OF SYSTEMS: Admits to generalized body weakness with easy fatigability and tiredness and suboptimal energy level. Also admits to bifrontal headaches with marked insomnia and disrupted sleep patterns. Admits to precordial chest pain with episodic palpitations and progressive shortness of breath initially on exertion and then at rest. Also admits to nausea, dyspepsia and vague upper abdominal pains with hyperdefecation. PHYSICAL EXAMINATION: GENERAL: An average-built female in no apparent distress. VITAL SIGNS: Blood pressure of 140/80, pulse of 110 beats per minute regular, temperature 99, respirations 20. Height is 5 feet 6 inches, weight is 151 pounds. HEENT: Head normocephalic. Eyes anicteric with pink conjunctivae. Funduscopy not possible at this time. Ears, nose, and throat otherwise normal. NECK: Supple. Thyroid gland shows nodular thyromegaly with small bilateral nodules as noted and also positive thyroid bruits. HEART: Hyperdynamic precordium. S1, S2 is rapid and regular. LUNGS: Clear to auscultation. ABDOMEN: Flat, soft with positive bowel sounds. EXTREMITIES: No peripheral edema. Pulses are +2 bilaterally. LABORATORY DATA: Her free T4 is 6.12 with a TSH of less than 0.02. Chemistries; BUN of 16, sodium 138, potassium 3.9, chloride 91, CO2 of 36, glucose 89 and creatinine 1. ASSESSMENT: This is a 67-year-old female with overt thyrotoxicosis noted both historically, clinically and biochemically most likely related to underlying Graves disease with a concomitant diffuse toxic goiter as noted. PLAN OF MANAGEMENT: We will start her right away with medical therapy with Tapazole given as 10 mg p.o. t.i.d. to start today as ordered. We will obtain a comprehensive thyroid hormonal profile tomorrow with a total and free T4 and TSH as ordered. We will add thyroid antibodies with a thyroid stimulating immunoglobulin and thyroid peroxidase antibody to confirm and/or indicate the presence of underlying thyroid autoimmunity. A thyroid ultrasound has been undertaken and we will review accordingly as noted. We will obtain serial chemistries and supplement accordingly as needed. We will follow with you. Marina Finley MD
[2018-01-15] MEDS: Pantoprazole 20 mg EC Tab PO SCH (05:56)
[2018-01-15] MEDS ORDERED: Albuterol-Ipratrop 3 mg / 0.5 (3 ml) UD IH PRN (06:37)
[2018-01-15 07:23] LABS: ALB/GLOB RATIO 1.1 (1.1-1.8); ALBUMIN 3.4 g/dL (3.0-4.8); ALT/SGPT 30 U/L (7-56); AST/SGOT 23 U/L (14-36); BASO # 0.03 K/mm3 (0.0-2.0); BASO % 0.4 % (0.0-3.0); BLOOD UREA NITROGEN 19 mg/dL (7-21); CALCIUM 8.8 mg/dL (8.4-10.5); EOS # 0.4 (0.0-0.7); EOS % 5.6 % (1.5-5.0); GFR AFRICAN-AMERICAN > 60; GFR NON-AFRICAN AMERICAN 55; GRAN # 3.5 (1.4-6.5); GRAN % 51.8 % (50.0-68.0); HEMOGLOBIN 9.8 g/dL (12.0-16.0); LYMPH # 1.8 (1.2-3.4); LYMPH % 27.1 % (22.0-35.0); MEAN CORPUSCULAR HEMOGLOBIN 28.2 pg (25.0-35.0); MEAN CORPUSCULAR HGB CONC 32.5 g/dl (31.0-37.0); MEAN PLATELET VOLUME 10.1 fl (7.0-11.0); MONO % 15.1 % (1.0-6.0); RBC 3.47 10^6/uL (3.5-6.1); RED CELL DISTRIBUTION WIDTH 13.6 % (11.5-14.5); WHITE BLOOD COUNT 6.8 10^3/ul (4.5-11.0)
[2018-01-15 07:34] LABS: FREE T4 4.65 ng/dL (0.78-2.19); T4 17.4 ug/dL (5.5-11.0)
[2018-01-15] MEDS: Budesonide 0.5 mg/2 ml Inhal Susp UD IH SCH ×2 (07:44→19:36)
[2018-01-15] MEDS ORDERED: Albuterol-Ipratrop 3 mg / 0.5 (3 ml) UD IH SCH (08:00)
--- NOTE | 2018-01-15 09:19 | CON ---
DATE: 01/15/2018 PULMONARY CONSULTATION REASON FOR CONSULTATION: Lung mass. REFERRING PHYSICIAN: Dr. Cr HISTORY OF PRESENT ILLNESS: The patient is a 67-year-old female, with past medical history significant for chronic obstructive pulmonary disease, positive former smoker, hypertension, hyperlipidemia, hyperparathyroidism, status post recent removal of two parathyroid adenomas, who presents to [facility] with main complaints of increasing weakness and nausea for the past 3 days. In addition, the patient complains of dyspnea on exertion for the past 6 months. The patient is not short of breath at rest. She does have a daily chronic cough with sputum production-unchanged. There is no history of chest pain, coughing up of blood, or chest pain-made worse with deep respirations. There is no history of temperatures, chills or infectious exposure. There is no history of night sweats, weight loss or appetite change prior to the above events. No history of leg or calf pains. No history of syncope or diaphoresis. No history of recent travel or trauma. REVIEW OF SYSTEMS. No history of abdominal pain or vomiting. No history of acute urinary symptoms. No new neurologic complaints. Rest of the review of systems is negative. ALLERGIES: TO CODEINE, AVELOX AND PERCOCET. SOCIAL HISTORY: Positive for previous tobacco usage-stopped in 2000. No alcohol. FAMILY HISTORY: No inheritable diseases. HOME MEDICATIONS: Include Norvasc, Lasix, Coreg, Lipitor and aspirin. PHYSICAL EXAMINATION: GENERAL: The patient appears comfortable at rest. She is not short of breath. VITAL SIGNS: Temperature is 98.7, pulse 95, respirations 18/20, blood pressure 149/74. Oxygen saturation on nasal cannula is 96-98%. HEENT: Normocephalic, atraumatic. No JVD. CARDIOVASCULAR: Positive S1, S2. No S3 gallop. LUNGS: Decreased breath sounds at the bases. Minimal rhonchi. No wheezing. EXTREMITIES: No clubbing, cyanosis or edema. Calves are nontender to palpation. GI: Abdomen is soft, nontender and nondistended. Bowel sounds are positive. SKIN: No acute rash. NEUROLOGIC: Exam limited at the present time. PERTINENT LABORATORY DATA: CAT scan of the chest was done on 01/13/2018 and reviewed. There is a 6.6 x 3.4 cm mass seen at the inferior aspect of the right lower lobe. There is no pleural effusion. There is no lymphadenopathy. CBC: White count 6.8K, hemoglobin 10.7, hematocrit 32, platelets of 269,000. Complete metabolic profile: Chloride 91, carbon dioxide 36. Rest of the metabolic profile is within normal limits. IMPRESSION: 1. Chronic obstructive pulmonary disease. 2. Right lower lobe lung mass. 3. Mild anemia. 4. History of hyperparathyroidism. PLAN: The patient presents to [facility] with main complaints of increasing weakness and nausea for the past 3 days. In addition, as above, the patient also complains of increasing dyspnea on exertion for the past 6 months. She also has a daily cough with sputum production. She offers no other pulmonary complaints. She maintains a good appetite without weight loss. I did review the CAT scan of the chest-noted above. The CAT scan does reveal a fairly large right lower lobe mass. However, the mass is atypical in appearance. There appears to be different densities within the mass. In addition, there is no significant lymphadenopathy. The patient is status post CAT scan guided lung biopsy. We are awaiting the results. On physical exam, the patient is in mild bronchospasm. However, there is no significant alveolar-arterial gradient. I will start the patient on scheduled DuoNeb treatments and inhaled steroids this morning. The patient is on no pulmonary medications at home. Inputs by Dr. Raul Perez and Dr. Finley are also both noted. The patient does state to feeling better this morning-compared to a few days ago. She appears clinically improved. Additional pulmonary intervention will be based on the clinical status of the patient, as well as the above results. I will discuss the above with the entire medical team. Thank you very much for this pulmonary consultation. Kevin Bautista MD [facility]
[2018-01-15] MEDS ORDERED: Levalbuterol 1.25 MG/3 ML Inhal Soln UD IH PRN (10:01)
[2018-01-15] MEDS: Calcium-Vit D 250 mg-125 Units Tab UD PO SCH ×3 (10:36→17:19)
--- NOTE | 2018-01-15 10:36 | RAD ---
HISTORY: Right lung bx COMPARISON: Comparison chest and CTA chest both dated 01/13/2018. Comparison also made with CT-guided biopsy imaging 01/14/2018. . FINDINGS: LUNGS: Significant centrilobular emphysematous changes upper lobe predominance less well seen on this study as compared to high-resolution CT chest. . Previously noted elliptical shaped masslike density right posterior sulcus also poorly seen. PLEURA: No significant pleural effusion identified, no pneumothorax apparent. CARDIOVASCULAR: Cardiac silhouette stable OSSEOUS STRUCTURES: No significant abnormalities. VISUALIZED UPPER ABDOMEN: Normal. OTHER FINDINGS: None. IMPRESSION: Significant centrilobular emphysematous changes upper lobe predominance less well seen on this study as compared to high-resolution CT chest. . Previously noted elliptical shaped masslike density right posterior sulcus also poorly seen.
[2018-01-15] MEDS: Enoxaparin 40 mg Syringe SC SCH (10:40)
[2018-01-15] MEDS: cefTRIAXone 1 gm 1 GM/100 ML BAG IVPB SCH (10:53)
[2018-01-15] MEDS: Azithromycin 500MG/NS 250ml 500 MG/250 ML BAG IVPB SCH (12:51)
[2018-01-15] MEDS: Levalbuterol 1.25 MG/3 ML Inhal Soln UD IH SCH ×2 (13:45→19:36)
--- NOTE | 2018-01-15 15:33 | CP.PCM.PN ---
<Maxi Cole - Last Filed: 01/15/18 15:55> Subjective - Date & Time of Evaluation Date of Evaluation: 01/15/18 Time of Evaluation: 15:30 - Subjective Subjective: Maxi Cole DO, PGY-1: Hospitalist Service Patient seen and examined at bedside. Patient reports no chest pain, dyspnea, or palpitations. She reports weakness and still some nausea, but appears to be tolerating diet. Nurse reports no adverse events overnight. Objective - Vital Signs/Intake and Output Vital Signs (last 24 hours): Temp Pulse Resp BP Pulse Ox 98.9 F 89 20 127/56 L 97 01/15/18 12:00 01/15/18 14:00 01/15/18 12:00 01/15/18 12:00 01/15/18 08:38 Intake and Output: 01/15/18 01/15/18 06:59 18:59 Intake Total 420 Balance 420 - Medications Medications: Current Medications Acetaminophen (Tylenol 325mg Tab) 650 mg PO Q6 PRN PRN Reason: Pain, Mild (1-3) Last Admin: 01/14/18 18:47 Dose: 650 mg Aspirin (Aspirin Chewable) 81 mg PO DAILY [facility] Last Admin: 01/15/18 10:40 Dose: 81 mg Atorvastatin Calcium (Lipitor) 20 mg PO DAILY [facility] Last Admin: 01/15/18 10:36 Dose: 20 mg Budesonide (Pulmicort Respules) 0.5 mg IH [id number] [facility] Last Admin: 01/15/18 07:44 Dose: 0.5 mg Calcium/Vitamin D (Oscal-D 250 Mg-125 Units Tab) 2 tab PO BID [facility] Last Admin: 01/15/18 10:36 Dose: Not Given Carvedilol (Coreg) 6.25 mg PO BID [facility] Last Admin: 01/15/18 10:37 Dose: 6.25 mg Enoxaparin Sodium (Lovenox) 40 mg SC DAILY [facility] PRN Reason: Protocol Last Admin: 01/15/18 10:40 Dose: 40 mg Furosemide (Lasix) 40 mg PO DAILY [facility] Last Admin: 01/15/18 10:37 Dose: 40 mg Ceftriaxone Sodium (Rocephin 1 Gram Ivpb) 1 gm in 100 mls @ 100 mls/hr IVPB DAILY [facility] PRN Reason: Protocol Last Admin: 01/15/18 10:53 Dose: 100 mls/hr Azithromycin (Zithromax 500mg In Ns) 500 mg in 250 mls @ 167 mls/hr IVPB DAILY [facility] PRN Reason: Protocol Last Admin: 01/15/18 12:51 Dose: 167 mls/hr Levalbuterol HCl (Xopenex) 1.25 mg IH TIDRESP [facility] Last Admin: 01/15/18 13:45 Dose: 1.25 mg Levalbuterol HCl (Xopenex) 1.25 mg IH Q3H PRN PRN Reason: Shortness of Breath Methimazole (Tapazole) 20 mg PO BID [facility] Ondansetron HCl (Zofran Inj) 4 mg IVP Q6H PRN PRN Reason: Nausea/Vomiting Pantoprazole Sodium (Protonix Ec Tab) 20 mg PO 0600 [facility] Last Admin: 01/15/18 05:56 Dose: 20 mg - Labs Labs: 01/15/18 06:00 01/15/18 06:00 PT 12.3 SECONDS (9.4-12.5) 01/13/18 15:21 INR 1.08 (0.93-1.08) 01/13/18 15:21 APTT 25.9 Seconds (25.1-36.5) 01/13/18 15:21 - Constitutional Appears: Non-toxic, No Acute Distress - Head Exam Head Exam: ATRAUMATIC, NORMOCEPHALIC - Eye Exam Eye Exam: EOMI, Normal appearance - ENT Exam ENT Exam: Mucous Membranes Moist - Neck Exam Additional comments: Incision noted suprasternally - Respiratory Exam Respiratory Exam: Decreased Breath Sounds (bilaterally), Prolonged Expiratory Phase, NORMAL BREATHING PATTERN - Cardiovascular Exam Cardiovascular Exam: RRR, +S1, +S2 - GI/Abdominal Exam GI & Abdominal Exam: Soft, Normal Bowel Sounds - Extremities Exam Extremities Exam: Normal Inspection. absent: Calf Tenderness - Back Exam Back Exam: NORMAL INSPECTION - Neurological Exam Neurological Exam: Alert, Awake, Oriented x3 Neuro motor strength exam: Left Upper Extremity: 5, Right Upper Extremity: 5, Left Lower Extremity: 5, Right Lower Extremity: 5 - Psychiatric Exam Psychiatric exam: Normal Affect, Normal Mood - Skin Skin Exam: Dry, Intact, Normal Color, Warm Assessment and Plan - Assessment and Plan (Free Text) Assessment: 67 year old female with a past medical history of hypertension, dyslipidemia, hypercalcemia secondary to hyperparathyroidism s/p removal of parathyroid adenomas on 01/07/18, and GERD who presents with 6 months of exertional dyspnea, associated chest pain, and 5 days of generalized weakness. Initial diagnostic test revealed a D-dimer of 521, NT-Pro-BNP of 883, Magnesium of 0.8, Thyroxine of 6.12, and a TSH less than 0.02. Patient found to have a right lung mass and evidence of COPD on the CTA. Subsequently, a CT-guided lung biopsy was taken of the right lung mass and the patient was started empirically on antibiotics for suspicion of a Cryptogenic Organizing Pneumonia. For the patient's COPD, pulmonology started a maintanence steroid inhaler and Xopenex around the clock. For the patient's hyperthyroidism of un-determined etiology, endocrinology was consulted and methimazole was started. A thyroid US was also performed in conjuction with a number of thryoid functioning tests. Lastly, the patient underwent a nuclear stress test that was normal and an also had an echocardiogram that showed LVEF of 57%, a dilated left atrium, moderate tricuspid regurgitation, and moderate pulmonary hypertension. Plan: 1) Chest pain rule out ACS - EKG showed sinus rhythm with premature atrial complexes with aberrant conduction and possible atrial enlargement - Troponin x3 negative - Cardiology consulted, Dr. Velez - Nuclear stress test normal 2) Rule out CHF - Lasix 40 mg PO Daily - Echocardiogram shows good systolic function with estimated ejection fraction of 57%, borderline Left Ventricular Hypertrophy, Aortic valve sclerosis without stenosis, dilated left atrium, moderate tricuspid regurgitation, moderate pulmonary hypertension. - Cardiology consulted, Dr. Velez 3) Right lung mass versus Cryptogenic organizing pneumonia in a patient with underlying COPD - 6.6 cm mass is seen in the right lung in the posterior sulcus nonspecific in appearance. Please see different diagnosis above. Neoplasm not favored but is not excluded here. Further clinical correlation is recommended. - CT-guided biopsy with core-needle biopsy taken, pathology pending - Repeal chest X-ray shows no pneumothorax and is interpreted as follows: Significant centrilobular emphysematous changes upper lobe predominance less well seen on this study as compared to high-resolution CT chest. . Previously noted elliptical shaped masslike density right posterior sulcus also poorly seen. - CT-guided biopsy of right lung mass with core needle biopsy - Pathology results to follow - Budesonide 0.5 mg q12h - Xopenex 1.25 TID [facility] - Xopenex 1.25 PRN Q3H PRN for dyspnea - Ceftriaxone 1 gram IVP daily - Azithromycin 500 mg IVP daily - Pulmonology recommendations appreciated 4) Hypertension - Coreg 6.25 mg BID - Amlodipine 5 mg 5) Dyslipidemia - Continue atorvastatin 20 mg HS 6) Primary prevention - Aspirin 81 mg PO daily 7) Elevated thyroxine and low TSH after parathyroid surgery - Thyroid US Impression: as Potential trace seroma tear or chronic hematomas are seen in the periphery of both left and right thyroid lobes with abscesses not favored. History of the patient reveals recently underwent parathyroidectomy. Consider postoperative change. Multiple nodules are scattered at the bilateral thyroid lobes with dominant nodules as described above. Numerous nodules are more frequent at the right than left sides. Clinically correlate. Consider ultrasound follow-up as indicated. - Dr. Finley, shaft mechanic, consulted, recommendations appreciated - Methimazole 20 mg BID - TSH < 0.02, Free T4 4.65, T4 17.4 8) Hypo/hypermagnesemia - Recheck in AM - Replete as needed - Serial CMPs 9) Calcium and Vitamin D therapy s/p removal of two parathyroid adenomas - Continue home medication 10) DVT/GI prophylaxis - Lovenox 40 mg SC - Protonix 20 mg PO daily Case reviewed and discussed with attending physician, Dr. Cr <Abdulkadir Cr - Last Filed: 01/15/18 18:24> Objective - Vital Signs/Intake and Output Vital Signs (last 24 hours): Temp Pulse Resp BP Pulse Ox 98 F 84 18 128/68 96 01/15/18 17:37 01/15/18 17:37 01/15/18 17:37 01/15/18 17:37 01/15/18 17:37 Intake and Output: 01/15/18 01/15/18 06:59 18:59 Intake Total 420 Balance 420 - Medications Medications: Current Medications Acetaminophen (Tylenol 325mg Tab) 650 mg PO Q6 PRN PRN Reason: Pain, Mild (1-3) Last Admin: 01/14/18 18:47 Dose: 650 mg Aspirin (Aspirin Chewable) 81 mg PO DAILY [facility] Last Admin: 01/15/18 10:40 Dose: 81 mg Atorvastatin Calcium (Lipitor) 20 mg PO DAILY [facility] Last Admin: 01/15/18 10:36 Dose: 20 mg Budesonide (Pulmicort Respules) 0.5 mg IH [id number] [facility] Last Admin: 01/15/18 07:44 Dose: 0.5 mg Calcium/Vitamin D (Oscal-D 250 Mg-125 Units Tab) 2 tab PO BID [facility] Last Admin: 01/15/18 17:19 Dose: Not Given Carvedilol (Coreg) 6.25 mg PO BID [facility] Last Admin: 01/15/18 17:16 Dose: 6.25 mg Enoxaparin Sodium (Lovenox) 40 mg SC DAILY [facility] PRN Reason: Protocol Last Admin: 01/15/18 10:40 Dose: 40 mg Furosemide (Lasix) 40 mg PO DAILY [facility] Last Admin: 01/15/18 10:37 Dose: 40 mg Ceftriaxone Sodium (Rocephin 1 Gram Ivpb) 1 gm in 100 mls @ 100 mls/hr IVPB DAILY [facility] PRN Reason: Protocol Last Admin: 01/15/18 10:53 Dose: 100 mls/hr Azithromycin (Zithromax 500mg In Ns) 500 mg in 250 mls @ 167 mls/hr IVPB DAILY [facility] PRN Reason: Protocol Last Admin: 01/15/18 12:51 Dose: 167 mls/hr Levalbuterol HCl (Xopenex) 1.25 mg IH TIDRESP [facility] Last Admin: 01/15/18 13:45 Dose: 1.25 mg Levalbuterol HCl (Xopenex) 1.25 mg IH Q3H PRN PRN Reason: Shortness of Breath Methimazole (Tapazole) 20 mg PO BID [facility] Last Admin: 01/15/18 17:17 Dose: 20 mg Ondansetron HCl (Zofran Inj) 4 mg IVP Q6H PRN PRN Reason: Nausea/Vomiting Pantoprazole Sodium (Protonix Ec Tab) 20 mg PO 0600 [facility] Last Admin: 01/15/18 05:56 Dose: 20 mg - Labs Labs: 01/15/18 06:00 01/15/18 06:00 PT 12.3 SECONDS (9.4-12.5) 01/13/18 15:21 INR 1.08 (0.93-1.08) 01/13/18 15:21 APTT 25.9 Seconds (25.1-36.5) 01/13/18 15:21 Attending/Attestation - Attestation I have personally seen and examined this patient.: Yes I have fully participated in the care of the patient.: Yes I have reviewed all pertinent clinical information, including history, physical exam and plan: Yes Notes (Text): 01/15/18 18:21 67 year old female with past medical history of hypertension, dyslipidemia, hyperparathyroidism s/p parathyroidectomy, and history of tobacco use presented with complaint of chest pain and dyspnea. Serial cardiac enzymes were negative and ACS was ruled out. She was seen by cardiology and underwent cardiac stress test which was negative. CT chest study was negative for PE but showed 6.6 x 3.4 cm lung mass in the right lower lobe. Pulmonary evaluation and IR evaluation were appreciated and patient is s/p lung biopsy. Will follow up on pathology. She has been started on antibiotics, xopenex and budesonide. TSH was low with elevated FT4. Endocrinology evaluation was appreciated who started methimazole. Thyroid US was reviewed as above. Will follow up with endocrinology recommendations. Patient was counselled on smoking abstinence. Hypomagnesemia has improved. Abdulkadir Cr MD Hospitalist.
[2018-01-15] MEDS ORDERED: DiphenhydrAMINE 50 mg/ml Inj IVP ONE ×2 (15:48→16:00)
[2018-01-15] MEDS: Sodium Chloride 0.9% 1,000 ML IV SCH (20:00)
[2018-01-16] MEDS: Sodium Chloride 0.9% 1,000 ML IV SCH (05:27)
[2018-01-16] MEDS: Pantoprazole 20 mg EC Tab PO SCH (05:28)
[2018-01-16 07:28] LABS: BASO # 0.02 K/mm3 (0.0-2.0); BASO % 0.3 % (0.0-3.0); EOS # 0.4 (0.0-0.7); EOS % 4.7 % (1.5-5.0); GRAN # 4.85 (1.4-6.5); GRAN % 61.5 % (50.0-68.0); HEMOGLOBIN 9.9 g/dL (12.0-16.0); LYMPH # 1.5 (1.2-3.4); LYMPH % 18.4 % (22.0-35.0); MEAN CELL VOLUME 87.4 fl (80.0-105.0); MEAN CORPUSCULAR HEMOGLOBIN 28.4 pg (25.0-35.0); MEAN CORPUSCULAR HGB CONC 32.5 g/dl (31.0-37.0); MEAN PLATELET VOLUME 10.3 fl (7.0-11.0); MONO # 1.2 (0.1-0.6); MONO % 15.1 % (1.0-6.0); RBC 3.49 10^6/uL (3.5-6.1); RED CELL DISTRIBUTION WIDTH 13.8 % (11.5-14.5); WHITE BLOOD COUNT 7.9 10^3/ul (4.5-11.0)
[2018-01-16 07:43] LABS: ALB/GLOB RATIO 1.1 (1.1-1.8); ALBUMIN 3.5 g/dL (3.0-4.8); ALT/SGPT 30 U/L (7-56); AST/SGOT 18 U/L (14-36); BLOOD UREA NITROGEN 17 mg/dL (7-21); CALCIUM 7.9 mg/dL (8.4-10.5); GFR AFRICAN-AMERICAN > 60; GFR NON-AFRICAN AMERICAN > 60
[2018-01-16] MEDS: Budesonide 0.5 mg/2 ml Inhal Susp UD IH SCH ×2 (07:44→19:40)
[2018-01-16] MEDS: Levalbuterol 1.25 MG/3 ML Inhal Soln UD IH SCH ×4 (07:44→19:40)
[2018-01-16] MEDS ORDERED: Magnesium Sulfate 1 gm in D5W 1 GM/100 ML BAG IVPB ONE ×2 (07:49→08:00)
--- NOTE | 2018-01-16 08:49 | PN ---
DATE: 01/16/2018 PULMONARY NOTE SUBJECTIVE: The patient appears comfortable this morning. She is not short of breath at rest. PHYSICAL EXAMINATION VITAL SIGNS: Temperature is 97.8, pulse 87, respirations 18/20, blood pressure 137/54. Oxygen saturation on room air is 97%. HEENT: Normocephalic, atraumatic. No JVD. CARDIOVASCULAR: Positive S1, S2. No S3 gallop. LUNGS: Clear bilaterally this morning. EXTREMITIES: No clubbing, cyanosis or edema. Calves are nontender to palpation. GI: Abdomen is soft, nontender and nondistended. Bowel sounds are positive. SKIN: No acute rash. NEUROLOGIC: Limited at the present time. IMPRESSION: 1. Chronic obstructive pulmonary disease. 2. Right lower lobe lung mass. 3. Mild anemia. 4. History of hyperparathyroidism. PLAN: The patient appears comfortable this morning. She is not short of breath at rest. She does state to feeling better overall. On physical exam, her bronchospasm is resolving. In addition, the alveolar-arterial gradient is also resolving. Oxygen saturation on room air is now 97%. I will continue with the current nebulizer treatments and inhaled steroids for now. The patient is also on antibiotic therapy. There are no temperatures noted. There is no leukocytosis. We are awaiting the CAT scan guided lung biopsy results. Hopefully, we will have some preliminary results tomorrow. I will certainly discuss the case with Pathology. Clinical status of the patient is definitely improved - compared to her initial status. I will discuss the above with the attending physician this morning. Kevin Bautista MD MTDD
[2018-01-16] MEDS: cefTRIAXone 1 gm 1 GM/100 ML BAG IVPB SCH (10:59)
[2018-01-16] MEDS: Azithromycin 500MG/NS 250ml 500 MG/250 ML BAG IVPB SCH (11:00)
[2018-01-16] MEDS: Enoxaparin 40 mg Syringe SC SCH (11:06)
--- NOTE | 2018-01-16 18:01 | CP.PCM.PN ---
<Maxi Cole - Last Filed: 01/16/18 18:42> Subjective - Date & Time of Evaluation Date of Evaluation: 01/16/18 Time of Evaluation: 17:55 - Subjective Subjective: Maxi Cole PGY-1: Hospitalist Service Patient seen and examined at bedside. Patient and family member at bedside report she slept poorly overnight. The patient denied any chest pain or dyspnea. Patient stated she would try the Azithromycin again given she was able to take it PO in the past. We discussed the possibility of her thyroid levels being off and the recent use of contrast dye may have increased her risk of having an allergic reaction. We will continue to monitor the patient closely. Objective - Vital Signs/Intake and Output Vital Signs (last 24 hours): Temp Pulse Resp BP Pulse Ox 98.1 F 84 20 129/56 L 97 01/16/18 12:00 01/16/18 14:00 01/16/18 12:00 01/16/18 12:00 01/16/18 06:00 Intake and Output: 01/16/18 01/16/18 06:59 18:59 Intake Total 360 1000 Balance 360 1000 - Medications Medications: Current Medications Acetaminophen (Tylenol 325mg Tab) 650 mg PO Q6 PRN PRN Reason: Pain, Mild (1-3) Last Admin: 01/16/18 11:13 Dose: 650 mg Aspirin (Aspirin Chewable) 81 mg PO DAILY [facility] Last Admin: 01/16/18 10:59 Dose: 81 mg Atorvastatin Calcium (Lipitor) 20 mg PO DAILY [facility] Last Admin: 01/16/18 10:59 Dose: 20 mg Budesonide (Pulmicort Respules) 0.5 mg IH [id number] [facility] Last Admin: 01/16/18 07:44 Dose: 0.5 mg Carvedilol (Coreg) 6.25 mg PO BID [facility] Last Admin: 01/16/18 11:04 Dose: 6.25 mg Enoxaparin Sodium (Lovenox) 40 mg SC DAILY [facility] PRN Reason: Protocol Last Admin: 01/16/18 11:06 Dose: 40 mg Furosemide (Lasix) 40 mg PO DAILY [facility] Last Admin: 01/16/18 11:05 Dose: 40 mg Ceftriaxone Sodium (Rocephin 1 Gram Ivpb) 1 gm in 100 mls @ 100 mls/hr IVPB DAILY [facility] PRN Reason: Protocol Last Admin: 01/16/18 10:59 Dose: 100 mls/hr Azithromycin (Zithromax 500mg In Ns) 500 mg in 250 mls @ 167 mls/hr IVPB DAILY [facility] PRN Reason: Protocol Last Admin: 01/16/18 11:00 Dose: 167 mls/hr Sodium Chloride (Sodium Chloride 0.9%) 1,000 mls @ 100 mls/hr IV .Q10H [facility] Last Admin: 01/16/18 05:27 Dose: 100 mls/hr Levalbuterol HCl (Xopenex) 1.25 mg IH TIDRESP [facility] Last Admin: 01/16/18 13:29 Dose: 1.25 mg Levalbuterol HCl (Xopenex) 1.25 mg IH Q3H PRN PRN Reason: Shortness of Breath Methimazole (Tapazole) 20 mg PO BID [facility] Last Admin: 01/16/18 10:59 Dose: 20 mg Ondansetron HCl (Zofran Inj) 4 mg IVP Q6H PRN PRN Reason: Nausea/Vomiting Pantoprazole Sodium (Protonix Ec Tab) 20 mg PO 0600 [facility] Last Admin: 01/16/18 05:28 Dose: 20 mg - Labs Labs: 01/16/18 06:30 01/16/18 06:30 PT 12.3 SECONDS (9.4-12.5) 01/13/18 15:21 INR 1.08 (0.93-1.08) 01/13/18 15:21 APTT 25.9 Seconds (25.1-36.5) 01/13/18 15:21 - Constitutional Appears: Non-toxic - Head Exam Head Exam: ATRAUMATIC, NORMOCEPHALIC - Eye Exam Eye Exam: EOMI, Normal appearance - ENT Exam ENT Exam: Mucous Membranes Moist - Neck Exam Additional comments: incision noted suprasternally (parathyroid adenoma removal) - Respiratory Exam Respiratory Exam: Clear to Ausculation Bilateral, Prolonged Expiratory Phase, NORMAL BREATHING PATTERN. absent: Accessory Muscle Use - Cardiovascular Exam Cardiovascular Exam: RRR, +S1, +S2 - GI/Abdominal Exam GI & Abdominal Exam: Soft, Normal Bowel Sounds - Extremities Exam Extremities Exam: Normal Inspection. absent: Calf Tenderness - Back Exam Back Exam: NORMAL INSPECTION. absent: CVA tenderness (L), CVA tenderness (R) - Neurological Exam Neurological Exam: Alert, Awake, Oriented x3 Neuro motor strength exam: Left Upper Extremity: 5, Right Upper Extremity: 5, Left Lower Extremity: 5, Right Lower Extremity: 5 - Psychiatric Exam Psychiatric exam: Normal Affect, Normal Mood - Skin Skin Exam: Dry, Intact, Normal Color, Warm Assessment and Plan - Assessment and Plan (Free Text) Assessment: 67 year old female with a past medical history of hypertension, dyslipidemia, hypercalcemia secondary to hyperparathyroidism s/p removal of parathyroid adenomas on 01/07/18, and GERD who presents with 6 months of exertional dyspnea, associated chest pain, and 5 days of generalized weakness. Initial diagnostic test revealed a D-dimer of 521, NT-Pro-BNP of 883, Magnesium of 0.8, Thyroxine of 6.12, and a TSH less than 0.02. Patient found to have a right lung mass and evidence of COPD on the CTA. Subsequently, a CT-guided lung biopsy was taken of the right lung mass and the patient was started empirically on antibiotics for suspicion of a Cryptogenic Organizing Pneumonia. For the patient's COPD, pulmonology started a maintanence steroid inhaler and Xopenex around the clock. For the patient's hyperthyroidism of un-determined etiology, endocrinology was consulted and methimazole was started. A thyroid US was also performed in conjuction with a number of thryoid functioning tests. Lastly, the patient underwent a nuclear stress test that was normal and an also had an echocardiogram that showed LVEF of 57%, a dilated left atrium, moderate tricuspid regurgitation, and moderate pulmonary hypertension. Plan: 1) Chest pain rule out ACS - EKG showed sinus rhythm with premature atrial complexes with aberrant conduction and possible atrial enlargement - Troponin x3 negative - Cardiology consulted, Dr. Velez - Nuclear stress test normal 2) Rule out CHF - Lasix 40 mg PO Daily - Echocardiogram shows good systolic function with estimated ejection fraction of 57%, borderline Left Ventricular Hypertrophy, Aortic valve sclerosis without stenosis, dilated left atrium, moderate tricuspid regurgitation, moderate pulmonary hypertension. - Cardiology consulted, Dr. Velez 3) Right lung mass versus Cryptogenic organizing pneumonia in a patient with underlying COPD - 6.6 cm mass is seen in the right lung in the posterior sulcus nonspecific in appearance. Please see different diagnosis above. Neoplasm not favored but is not excluded here. Further clinical correlation is recommended. - CT-guided biopsy with core-needle biopsy taken, pathology pending - Repeal chest X-ray shows no pneumothorax and is interpreted as follows: Significant centrilobular emphysematous changes upper lobe predominance less well seen on this study as compared to high-resolution CT chest. . Previously noted elliptical shaped masslike density right posterior sulcus also poorly seen. - CT-guided biopsy of right lung mass with core needle biopsy performed. Pathology results to follow - Budesonide 0.5 mg q12h - Xopenex 1.25 TID [facility] - Xopenex 1.25 PRN Q3H PRN for dyspnea - Ceftriaxone 1 gram IVP daily - Azithromycin 500 mg IVP daily - Pulmonology recommendations appreciated 4) Hypertension - Coreg 6.25 mg BID - Amlodipine 5 mg 5) Dyslipidemia - Continue atorvastatin 20 mg HS 6) Primary prevention - Aspirin 81 mg PO daily 7) Elevated thyroxine and low TSH after parathyroid surgery - Thyroid US Impression: as Potential trace seroma tear or chronic hematomas are seen in the periphery of both left and right thyroid lobes with abscesses not favored. History of the patient reveals recently underwent parathyroidectomy. Consider postoperative change. Multiple nodules are scattered at the bilateral thyroid lobes with dominant nodules as described above. Numerous nodules are more frequent at the right than left sides. Clinically correlate. Consider ultrasound follow-up as indicated. - Dr. Finley, samples and repairs preparer, consulted, recommendations appreciated - Methimazole 20 mg BID - TSH < 0.02, Free T4 4.65, T4 17.4 8) Hypo/hypermagnesemia - Recheck in AM - Replete as needed - Serial CMPs 9) Calcium and Vitamin D therapy s/p removal of two parathyroid adenomas - Continue home medication 10) DVT/GI prophylaxis - Lovenox 40 mg SC - Protonix 20 mg PO daily Case reviewed and discussed with attending physician, Dr. Cr <Abdulkadir Cr - Last Filed: 01/16/18 18:50> Objective - Vital Signs/Intake and Output Vital Signs (last 24 hours): Temp Pulse Resp BP Pulse Ox 97.9 F 84 18 113/54 L 96 01/16/18 18:00 01/16/18 18:00 01/16/18 18:00 01/16/18 18:00 01/16/18 18:00 Intake and Output: 01/16/18 01/16/18 06:59 18:59 Intake Total 360 1000 Balance 360 1000 - Medications Medications: Current Medications Acetaminophen (Tylenol 325mg Tab) 650 mg PO Q6 PRN PRN Reason: Pain, Mild (1-3) Last Admin: 01/16/18 11:13 Dose: 650 mg Aspirin (Aspirin Chewable) 81 mg PO DAILY [facility] Last Admin: 01/16/18 10:59 Dose: 81 mg Atorvastatin Calcium (Lipitor) 20 mg PO DAILY [facility] Last Admin: 01/16/18 10:59 Dose: 20 mg Budesonide (Pulmicort Respules) 0.5 mg IH [id number] [facility] Last Admin: 01/16/18 07:44 Dose: 0.5 mg Carvedilol (Coreg) 6.25 mg PO BID [facility] Last Admin: 01/16/18 17:55 Dose: 6.25 mg Enoxaparin Sodium (Lovenox) 40 mg SC DAILY [facility] PRN Reason: Protocol Last Admin: 01/16/18 11:06 Dose: 40 mg Furosemide (Lasix) 40 mg PO DAILY [facility] Last Admin: 01/16/18 11:05 Dose: 40 mg Ceftriaxone Sodium (Rocephin 1 Gram Ivpb) 1 gm in 100 mls @ 100 mls/hr IVPB DAILY [facility] PRN Reason: Protocol Last Admin: 01/16/18 10:59 Dose: 100 mls/hr Azithromycin (Zithromax 500mg In Ns) 500 mg in 250 mls @ 167 mls/hr IVPB DAILY [facility] PRN Reason: Protocol Last Admin: 01/16/18 11:00 Dose: 167 mls/hr Levalbuterol HCl (Xopenex) 1.25 mg IH TIDRESP [facility] Last Admin: 01/16/18 13:29 Dose: 1.25 mg Levalbuterol HCl (Xopenex) 1.25 mg IH Q3H PRN PRN Reason: Shortness of Breath Methimazole (Tapazole) 20 mg PO BID [facility] Last Admin: 01/16/18 17:50 Dose: 20 mg Ondansetron HCl (Zofran Inj) 4 mg IVP Q6H PRN PRN Reason: Nausea/Vomiting Pantoprazole Sodium (Protonix Ec Tab) 20 mg PO 0600 [facility] Last Admin: 01/16/18 05:28 Dose: 20 mg - Labs Labs: 01/16/18 06:30 01/16/18 06:30 PT 12.3 SECONDS (9.4-12.5) 01/13/18 15:21 INR 1.08 (0.93-1.08) 01/13/18 15:21 APTT 25.9 Seconds (25.1-36.5) 01/13/18 15:21 Attending/Attestation - Attestation I have personally seen and examined this patient.: Yes I have fully participated in the care of the patient.: Yes I have reviewed all pertinent clinical information, including history, physical exam and plan: Yes Notes (Text): 01/16/18 18:48 67 year old female with past medical history of hypertension, dyslipidemia, hyperparathyroidism s/p parathyroidectomy, and history of tobacco use who presented with complaint of chest pain and dyspnea. Serial cardiac enzymes were negative and ACS was ruled out. She was seen by cardiology and underwent cardiac stress test which was negative. CT chest study was negative for PE but showed 6.6 x 3.4 cm lung mass in the right lower lobe. Pulmonary evaluation and IR evaluation were appreciated and patient is s/p lung biopsy on Wednesday. Will discuss with pathology tomorrow for biopsy results. She has been started on antibiotics, xopenex and budesonide. Case was discussed with Dr. Bautista today. TSH was low with elevated FT4. Endocrinology evaluation was appreciated who started methimazole. Thyroid US was reviewed as above. Will follow up with endocrinology recommendations. Patient was counselled on smoking abstinence. Will replete and repeat lytes. Abdulkadir Cr MD Hospitalist.
[2018-01-17] MEDS: Pantoprazole 20 mg EC Tab PO SCH (06:30)
[2018-01-17 06:36] VITALS: RESP 20
[2018-01-17 07:19] LABS: ALB/GLOB RATIO 1.1 (1.1-1.8); ALBUMIN 3.4 g/dL (3.0-4.8); ALT/SGPT 30 U/L (7-56); AST/SGOT 29 U/L (14-36); BLOOD UREA NITROGEN 11 mg/dL (7-21); CALCIUM 7.6 mg/dL (8.4-10.5); GFR AFRICAN-AMERICAN > 60; GFR NON-AFRICAN AMERICAN > 60
[2018-01-17 07:25] LABS: FREE T4 3.78 ng/dL (0.78-2.19); T4 15.3 ug/dL (5.5-11.0)
[2018-01-17 07:26] LABS: BASO # 0.03 K/mm3 (0.0-2.0); BASO % 0.4 % (0.0-3.0); EOS # 0.4 (0.0-0.7); EOS % 4.7 % (1.5-5.0); GRAN # 4.51 (1.4-6.5); GRAN % 60.8 % (50.0-68.0); HEMOGLOBIN 9.8 g/dL (12.0-16.0); LYMPH # 1.6 (1.2-3.4); LYMPH % 21.7 % (22.0-35.0); MEAN CELL VOLUME 88.6 fl (80.0-105.0); MEAN CORPUSCULAR HEMOGLOBIN 28.6 pg (25.0-35.0); MEAN CORPUSCULAR HGB CONC 32.2 g/dl (31.0-37.0); MEAN PLATELET VOLUME 10.2 fl (7.0-11.0); MONO # 0.9 (0.1-0.6); MONO % 12.4 % (1.0-6.0); RBC 3.43 10^6/uL (3.5-6.1); WHITE BLOOD COUNT 7.4 10^3/ul (4.5-11.0)
[2018-01-17] MEDS: Levalbuterol 1.25 MG/3 ML Inhal Soln UD IH SCH ×2 (07:36→21:36)
[2018-01-17] MEDS: Budesonide 0.5 mg/2 ml Inhal Susp UD IH SCH ×2 (07:36→21:36)
--- NOTE | 2018-01-17 07:58 | PN ---
DATE: 01/17/2018 PULMONARY NOTE SUBJECTIVE: The patient appears comfortable this morning. She is not short of breath at rest. PHYSICAL EXAMINATION: VITAL SIGNS: Temperature is 98, pulse 85, respirations 18, blood pressure 143/60. Oxygen saturation on room air is 91-97%. HEENT: Normocephalic, atraumatic. No JVD. CARDIOVASCULAR: Positive S1, S2. No S3 gallop. LUNGS: Clear bilaterally. EXTREMITIES: No clubbing, cyanosis or edema. Calves are nontender to palpation. GI: Abdomen is soft, nontender and nondistended. Bowel sounds are positive. SKIN: No acute rash. NEUROLOGIC: Limited at the present time. IMPRESSION: 1. Chronic obstructive pulmonary disease. 2. Right lower lobe lung mass. 3. Mild anemia. 4. History of hyperparathyroidism. PLAN: The patient appears comfortable this morning. She is not short of breath at rest. She is less dyspneic on exertion. She does state to feeling better overall. On physical exam, her lungs remain clear. In addition, the alveolar-arterial gradient is also less. I will continue with the current nebulizer treatments and inhaled steroids for now. The patient remains on antibiotic therapy. There are no temperatures noted. There is no leukocytosis. We are awaiting the pathology results on the CAT scan guided lung biopsy. I will meet with Dr. Ferrera this morning. Clinical status of the patient is definitely improved - compared to the initial presentation. I will discuss the above with the attending physician. eKvin Bautista MD MTDD
--- NOTE | 2018-01-17 08:39 | CON ---
DATE: 01/14/2018 CARDIOLOGY CONSULTATION HISTORY OF PRESENT ILLNESS: The patient is a 67-year-old woman with a past medical history of hypertension and hypercholesterolemia, who recently underwent removal of two parathyroid adenomas in [place]. She presents with general weakness, nausea, and dyspnea. The patient has no previous cardiac history. However, her cardiac risk factors include a long history of smoking 2 packs a day, which was stopped several years ago. She was initially found to be hypotensive and when she stopped her medication, she is back to a blood pressure of 140 systolic. She denies angina. PAST MEDICAL HISTORY: Free of diabetes mellitus. She does suffer from hypertension, hypercholesterolemia, chronic hypomagnesemia, and has a 60 pack-year smoking history. No previous myocardial infarction in the past. REVIEW OF SYSTEMS: A 14-point review of systems is reviewed. No additional cardiac symptoms other than the ones noted above. She does have a history of a fracture of humerus. PHYSICAL EXAMINATION: VITAL SIGNS: Blood pressure is 137/54, the heart rates in the 90s. NECK: Negative JVD. LUNGS: Decreased breath sounds bilaterally without rales. HEART: S1, S2 with a 2/6 systolic ejection murmur in parasternally. EXTREMITIES: Without clubbing, cyanosis, or edema. EKG reveals normal sinus rhythm with no acute changes. Echocardiogram reveals good LV function with moderate pulmonary hypertension noted. IMPRESSION: 1. Marked dyspnea. 2. General malaise and decreased appetite. 3. Chronic hypomagnesemia. 4. History of recent parathyroid surgery. 5. Hypertension. 6. Chronic obstructive pulmonary disease. Given these findings, we will need to replace her magnesium. Her dyspnea is more likely due to her lung disease and pulmonary hypertension and left heart failure. Her left ventricular function is normal. PLAN: We will proceed to a Lexiscan to rule out coronary disease. We will need to watch her blood pressure carefully. Raul Velez MD
[2018-01-17] MEDS ORDERED: Magnesium Sulfate 2 gm/50 ml 2 GM/50 ML BAG IVPB ONE (08:52)
[2018-01-17] MEDS ORDERED: Magnesium Sulfate 1 gm in D5W 1 GM/100 ML BAG IVPB ONE (08:52)
--- NOTE | 2018-01-17 09:04 | PN ---
DATE: 01/15/2018 ENDOCRINOLOGY FOLLOWUP NOTE LOCATION: Room [address], [address] [place] [address] SUBJECTIVE: This is a 67-year-old female with recent evaluation of overt thyrotoxicosis presenting here with progressive shortness of breath and generalized body weakness with concomitant hyperadrenergic manifestations and is now being followed closely for metabolic management. Her latest thyroid studies done today showed a total T4 or thyroxine level of 17.4 micrograms per deciliter with a free T4 of 4.65 as noted. Her latest chemistry showed a BUN of 19, sodium 133, potassium 3.8, chloride 90, CO2 35, glucose 99 and creatinine 1.0. ASSESSMENT: This is a 67-year-old female with overt thyrotoxicosis noted both historically, clinically and biochemically related to possible underlying Graves' disease with a concomitant diffuse toxic goiter. She also has overt hyperadrenergic and constitutional manifestations related to moderate hyperthyroidism as noted. PLAN OF MANAGEMENT: As discussed lengthily with the patient at bedside. We will continue the medical therapy as initiated, but we will modify to a higher dosing of Tapazole given as 20 mg p.o. b.i.d. after meals to start today as ordered. We will titrate incrementally as indicated to optimize metabolic control. We will send off thyroid antibodies to include a thyroid stimulating immunoglobulin and a thyroid peroxidase antibody, which will confirm and/or indicate the presence of underlying thyroid autoimmunity. We will obtain serial chemistries and supplement accordingly as needed. We will also obtain serial thyroid studies and titrate her dose regimen accordingly. We will follow this. Marina Finley MD
--- NOTE | 2018-01-17 09:26 | PN ---
DATE: 01/16/2018 ENDOCRINOLOGY FOLLOWUP NOTE SUBJECTIVE: This is a 67-year-old female with recent admission for progressively worsening shortness of breath and generalized body weakness with supervening tachycardia and has been evaluated to have Moderate hyperthyroidism both historically, clinically, and biochemically. She has been started on medical therapy which she is tolerating fairly well at this time. Her thyroid tests showed a T4 or Thyroxine = 17.4 with a free T4= 4,65, and TSH=<0.02. Her latest chemistry shows a BUN of 17, glucose is 98. Creatinine is 0.9. Her CO2=33 with Sodium =139 and Potassium=3,6. Her thyroid U/S confirmed the presence of overt thyromegaly with a "diffuse goiter' and small nodules bilaterally. So at this time, we will continue to modified medical therapy with thioureas using Tapazole given as 20 mg b.i.d. after meals as ordered. We will titrate incrementally as indicated to optimize metabolic control. Marina Finley MD [facility]
[2018-01-17] MEDS: cefTRIAXone 1 gm 1 GM/100 ML BAG IVPB SCH ×2 (09:52→15:03)
[2018-01-17] MEDS: Azithromycin 500MG/NS 250ml 500 MG/250 ML BAG IVPB SCH ×2 (09:53→15:03)
[2018-01-17] MEDS: Enoxaparin 40 mg Syringe SC SCH (09:53)
--- NOTE | 2018-01-17 17:32 | CP.PCM.PN ---
<Maxi Cole - Last Filed: 01/17/18 19:58> Subjective - Date & Time of Evaluation Date of Evaluation: 01/17/18 Time of Evaluation: 07:35 - Subjective Subjective: Shahzadernesto Cole PGY-1: Hospital Service Patient seen and examined at bedside. Patient reports she slept better this past night. She reports some production with the cough. Case was discussed with Dr. Bautista. Patient reports tolerating Azithromycin without any adverse reaction. Objective - Vital Signs/Intake and Output Vital Signs (last 24 hours): Temp Pulse Resp BP Pulse Ox 98.3 F 84 20 141/62 93 L 01/17/18 12:00 01/17/18 12:00 01/17/18 12:00 01/17/18 17:29 01/17/18 06:00 Intake and Output: 01/17/18 01/17/18 06:59 18:59 Intake Total 840 Balance 840 - Medications Medications: Current Medications Acetaminophen (Tylenol 325mg Tab) 650 mg PO Q6 PRN PRN Reason: Pain, Mild (1-3) Last Admin: 01/17/18 06:31 Dose: 650 mg Aspirin (Aspirin Chewable) 81 mg PO DAILY FOR[facility], [facility] Last Admin: 01/17/18 09:54 Dose: 81 mg Atorvastatin Calcium (Lipitor) 20 mg PO DAILY [facility], [facility] Last Admin: 01/17/18 09:54 Dose: 20 mg Azithromycin (Zithromax) 500 mg PO DAILY [facility], [facility]1983 PRN Reason: Protocol Last Admin: 01/17/18 15:09 Dose: 500 mg Budesonide (Pulmicort Respules) 0.5 mg IH [id number] [facility], [facility]1983 Last Admin: 01/17/18 07:36 Dose: 0.5 mg Carvedilol (Coreg) 6.25 mg PO BID [facility], [facility] Last Admin: 01/17/18 17:29 Dose: 6.25 mg Cefpodoxime Proxetil (Vantin) 200 mg PO Q12 [facility], [facility] Enoxaparin Sodium (Lovenox) 40 mg SC DAILY [facility], [facility]1983 PRN Reason: Protocol Last Admin: 01/17/18 09:53 Dose: 40 mg Levalbuterol HCl (Xopenex) 1.25 mg IH TIDRESP [facility] Last Admin: 01/17/18 07:36 Dose: 1.25 mg Levalbuterol HCl (Xopenex) 1.25 mg IH Q3H PRN PRN Reason: Shortness of Breath Methimazole (Tapazole) 20 mg PO BID [facility] Last Admin: 01/17/18 09:54 Dose: 20 mg Ondansetron HCl (Zofran Inj) 4 mg IVP Q6H PRN PRN Reason: Nausea/Vomiting Pantoprazole Sodium (Protonix Ec Tab) 20 mg PO 0600 [facility] Last Admin: 01/17/18 06:30 Dose: 20 mg - Labs Labs: 01/17/18 06:44 01/17/18 06:44 PT 12.3 SECONDS (9.4-12.5) 01/13/18 15:21 INR 1.08 (0.93-1.08) 01/13/18 15:21 APTT 25.9 Seconds (25.1-36.5) 01/13/18 15:21 - Constitutional Appears: Non-toxic - Head Exam Head Exam: ATRAUMATIC, NORMOCEPHALIC - Eye Exam Eye Exam: EOMI, Normal appearance - ENT Exam ENT Exam: Mucous Membranes Moist - Neck Exam Neck Exam: Normal Inspection - Respiratory Exam Respiratory Exam: Decreased Breath Sounds (at lung base), Prolonged Expiratory Phase. absent: Accessory Muscle Use - Cardiovascular Exam Cardiovascular Exam: RRR, +S1, +S2 - GI/Abdominal Exam GI & Abdominal Exam: Soft - Extremities Exam Extremities Exam: Normal Inspection. absent: Calf Tenderness - Neurological Exam Neurological Exam: Alert, Awake, Oriented x3 - Psychiatric Exam Psychiatric exam: Normal Affect, Normal Mood - Skin Skin Exam: Dry, Intact, Normal Color, Warm Assessment and Plan - Assessment and Plan (Free Text) Assessment: 67 year old female with a past medical history of hypertension, dyslipidemia, hypercalcemia secondary to hyperparathyroidism s/p removal of parathyroid adenomas on 01/07/18, and GERD who presents with 6 months of exertional dyspnea, associated chest pain, and 5 days of generalized weakness. Initial diagnostic test revealed a D-dimer of 521, NT-Pro-BNP of 883, Magnesium of 0.8, Thyroxine of 6.12, and a TSH less than 0.02. Patient found to have a right lung mass and evidence of COPD on the CTA. Subsequently, a CT-guided lung biopsy was taken of the right lung mass and the patient was started empirically on antibiotics for suspicion of a Cryptogenic Organizing Pneumonia. For the patient's COPD, pulmonology started a maintanence steroid inhaler and Xopenex around the clock. For the patient's hyperthyroidism, endocrinology was consulted and methimazole was started. A thyroid US was also performed in conjuction with a number of thryoid functioning tests. Lastly, the patient underwent a nuclear stress test that was normal and an also had an echocardiogram that showed LVEF of 57%, a dilated left atrium, moderate tricuspid regurgitation, and moderate pulmonary hypertension. Plan: 1) Chest pain rule out ACS - EKG showed sinus rhythm with premature atrial complexes with aberrant conduction and possible atrial enlargement - Troponin x3 negative - Cardiology consulted, Dr. Velez - Nuclear stress test normal 2) Rule out CHF - Lasix 40 mg PO Daily - Echocardiogram shows good systolic function with estimated ejection fraction of 57%, borderline Left Ventricular Hypertrophy, Aortic valve sclerosis without stenosis, dilated left atrium, moderate tricuspid regurgitation, moderate pulmonary hypertension. - Cardiology consulted, Dr. Velez 3) Right lung mass versus Cryptogenic organizing pneumonia in a patient with underlying COPD - 6.6 cm mass is seen in the right lung in the posterior sulcus nonspecific in appearance. Please see different diagnosis above. Neoplasm not favored but is not excluded here. Further clinical correlation is recommended. - CT-guided biopsy with core-needle biopsy taken, pathology pending - Repeal chest X-ray shows no pneumothorax and is interpreted as follows: Significant centrilobular emphysematous changes upper lobe predominance less well seen on this study as compared to high-resolution CT chest. . Previously noted elliptical shaped masslike density right posterior sulcus also poorly seen. - CT-guided biopsy of right lung mass with core needle biopsy performed. Pathology results to follow - Budesonide 0.5 mg q12h - Xopenex 1.25 TID JOSE MIGUEL - Xopenex 1.25 PRN Q3H PRN for dyspnea - Vantin 200 mg q12h - Azithromycin 500 mg PO daily - Pulmonology recommendations appreciated 4) Hypertension - Coreg 6.25 mg BID - Amlodipine 5 mg 5) Dyslipidemia - Continue atorvastatin 20 mg HS 6) Primary prevention - Aspirin 81 mg PO daily 7) Elevated thyroxine and low TSH after parathyroid surgery - Thyroid US Impression: as Potential trace seroma tear or chronic hematomas are seen in the periphery of both left and right thyroid lobes with abscesses not favored. History of the patient reveals recently underwent parathyroidectomy. Consider postoperative change. Multiple nodules are scattered at the bilateral thyroid lobes with dominant nodules as described above. Numerous nodules are more frequent at the right than left sides. Clinically correlate. Consider ultrasound follow-up as indicated. - Dr. Finley, treasury accountant, consulted, recommendations appreciated - Methimazole 20 mg BID - TSH < 0.02, T4 3.78, and T3 15.3 8) Hypo/hypermagnesemia - Recheck in AM - Replete as needed - Recheck in AM 9) Calcium and Vitamin D therapy s/p removal of two parathyroid adenomas - Continue home medication - Repeat ionized Ca was 7.6 - Patient informed to take her home dose as she has the bottle of the supplments the Head and Neck surgeon recommended. 10) DVT/GI prophylaxis - Lovenox 40 mg SC - Protonix 20 mg PO daily Case reviewed and discussed with attending physician, Dr. Cr <Carmen Kim - Last Filed: 01/18/18 18:29> Objective - Vital Signs/Intake and Output Vital Signs (last 24 hours): Temp Pulse Resp BP Pulse Ox 98.4 F 96 H 20 124/68 100 01/18/18 06:00 01/18/18 06:00 01/18/18 06:00 01/18/18 06:00 01/18/18 06:00 Intake and Output: 01/18/18 01/18/18 06:59 18:59 Intake Total 840 Output Total 2 Balance 838 - Labs Labs: 01/17/18 06:44 01/18/18 07:15 PT 12.3 SECONDS (9.4-12.5) 01/13/18 15:21 INR 1.08 (0.93-1.08) 01/13/18 15:21 APTT 25.9 Seconds (25.1-36.5) 01/13/18 15:21 Attending/Attestation - Attestation I have personally seen and examined this patient.: Yes I have fully participated in the care of the patient.: Yes I have reviewed all pertinent clinical information, including history, physical exam and plan: Yes Notes (Text): 01/18/18 18:27 attending note; Patient seen and examined with resident. Patient is a 67 year old female with past medical history of hypertension, dyslipidemia, hyperparathyroidism s/p parathyroidectomy, and history of tobacco use who presented with complaint of chest pain and dyspnea. Serial cardiac enzymes were negative and ACS was ruled out. She was seen by cardiology and underwent cardiac stress test which was negative. CT chest study was negative for PE but showed 6.6 x 3.4 cm lung mass in the right lower lobe. Pulmonary evaluation and IR evaluation were appreciated and patient is s/p lung biopsy on Wednesday. currently on xopenex and budesonide. Case was discussed with Dr. Bautista today. TSH was low with elevated FT4. Endocrinology evaluation was appreciated who started methimazole. needs repeat labs in 4-6 weeks. Patient was counselled on smoking abstinence. awaiting the pathology report. Hypomagnesemia; IV magnesium ordered. Possible discharge tomorrow. Upon discharge the patient will follow-up with PMD .
--- NOTE | 2018-01-18 04:41 | PN ---
DATE: 01/17/2018 ENDOCRINOLOGY FOLLOWUP NOTE LOCATION: Room 269. SUBJECTIVE: This is a 67-year-old female with recent evaluation of overt thyrotoxicosis related to underlying Graves' disease and is now being followed closely for metabolic management. She has improved clinically and metabolically as noted thereof. OBJECTIVE: Today's repeat thyroid studies showed a T4 of 15.3 with a free T4 of 3.78, which have improved since admission as noted. Her TSH remained less than 0.02, as this suppression stays on for 6 months or a year as noticed. Her latest chemistry showed a BUN of 11, sodium 140, potassium 3.9, chloride 89, CO2 of 31, glucose 96, and creatinine 0.8. ASSESSMENT AND PLAN: So at this time we will continue the modified and higher dosing of the thiourea, i.e., Tapazole, given as 20 mg b.i.d. after meals as ordered. If she is eventually discharged, we would continue the same dosing regimen and repeat the thyroid studies in 4 to 6 weeks for dose titration. Her thyroid ultrasound was consistent with the presence of an underlying diffuse goiter with very small nodules as noted. Her thyroid antibodies are also pending, which will confirm and/or indicate the presence of thyroid autoimmunity. We will obtain serial chemistries and supplement accordingly as needed. We will follow. Marina Finley MD
[2018-01-18] MEDS: Pantoprazole 20 mg EC Tab PO SCH (05:54)
[2018-01-18] MEDS: Budesonide 0.5 mg/2 ml Inhal Susp UD IH SCH (07:18)
[2018-01-18] MEDS: Levalbuterol 1.25 MG/3 ML Inhal Soln UD IH SCH ×2 (07:18→13:04)
[2018-01-18 08:01] LABS: BLOOD UREA NITROGEN 12 mg/dL (7-21); CALCIUM 8.5 mg/dL (8.4-10.5); GFR AFRICAN-AMERICAN > 60; GFR NON-AFRICAN AMERICAN > 60
[2018-01-18 08:05] VITALS: BP 124/68; PULSE 96; TEMP 98.4; O2SAT 100
--- NOTE | 2018-01-18 08:32 | PN ---
DATE: 01/18/2018 SUBJECTIVE: The patient appears comfortable this morning. She is not short of breath at rest. PHYSICAL EXAMINATION: VITAL SIGNS: (Last noted in the computer): Temperature is 98.3, pulse 84, respirations 18, blood pressure 141/62. Last oxygen saturation noted on nasal cannula - 93%. HEENT: Normocephalic, atraumatic. No JVD. CARDIOVASCULAR: Positive S1, S2. No S3 gallop. LUNGS: Clear bilaterally. EXTREMITIES: No clubbing, cyanosis or edema. Calves are nontender to palpation. GI: Abdomen is soft, nontender and nondistended. Bowel sounds are positive. SKIN: No acute rash. NEUROLOGIC: Exam limited at the present time. IMPRESSION: 1. Chronic obstructive pulmonary disease. 2. Right lower lobe lung mass. 3. Mild anemia. 4. Moderate pulmonary hypertension. PLAN: The patient appears comfortable this morning. She is not short of breath at rest. She is certainly less dyspneic on exertion. She does state to feeling better overall. On physical exam, her lungs remain clear. I will continue the current nebulizer treatments and inhaled steroids for now. The patient also remains on antibiotic therapy. There are no temperatures noted. There is no leukocytosis. I did meet with Dr. Ferrera (Pathology) at length yesterday. We should have some preliminary results on the CAT scan-guided lung biopsy later today. Lastly, I did review the echocardiogram done on 01/14/2018. Moderate pulmonary hypertension is noted (right ventricular systolic pressure is 64 mmHg). I will start low-dose Revatio this morning. Keep in mind, in order to get optimal therapy for her pulmonary hypertension, the patient will need a right heart catheterization. Clinical status of the patient is significantly improved overall. I will discuss the above with the entire medical team later this morning. I will also discuss the above with Dr. Arguelles. Kevin Bautista MD MTDD
[2018-01-18] MEDS ORDERED: Magnesium Sulfate 2 GM in Sodium Chloride 0.9% 100 ML IV ONE (08:43)
[2018-01-18] MEDS ORDERED: Sildenafil 20 MG TAB PO SCH (10:00)
[2018-01-18] MEDS ORDERED: Cefpodoxime (Vantin) 200 mg Tab PO SCH (10:00)
[2018-01-18] MEDS: Enoxaparin 40 mg Syringe SC SCH (10:23)
--- NOTE | 2018-01-18 14:16 | PN ---
DATE: 01/18/2018 ENDOCRINOLOGY FOLLOWUP NOTE LOCATION: In room 560. SUBJECTIVE: This is a 67-year-old female with recent evaluation for progressive shortness of breath and evaluation of acute exacerbation of COPD with concomitant moderate pulmonary hypertension and is now improving clinically and hemodynamically as noted thereof. She underwent a right lung biopsy and the results are pending at this time. She has a right lower lobe mass noted by CT evaluation as noted. She remains clinically and biochemically slightly hyperthyroid, but improved dramatically since admission. LABORATORY DATA: Her latest chemistry shows a BUN of 12, sodium 139, potassium 4.5, chloride 100, CO2 of 29, glucose 93 and creatinine 0.8. Her latest thyroid studies showed the T4 of 15.3 mcg/dL with a TSH of less than 0.02 and free T4 of 3.78. PLAN: So at this time, we will continue the modified medical therapy with Tapazole given as 20 mg b.i.d. after meals as ordered. We will obtain serial chemistries and supplement accordingly as needed. We will follow up with you. Marina Finley MD
--- NOTE | 2018-01-18 14:21 | PN ---
DATE: 01/18/2018 CARDIOLOGY FOLLOWUP SUBJECTIVE: The patient is comfortable without shortness of breath. PHYSICAL EXAMINATION: VITAL SIGNS: Blood pressure 124/68, heart rate is in 90s. NECK: Negative JVD. LUNGS: Without rales. HEART: S1 and S2. EXTREMITIES: Without edema. LABORATORY DATA: Hemoglobin is not measured today. BUN and creatinine unremarkable. Stress test is unremarkable. Echocardiogram reveals moderate pulmonary hypertension. The patient is currently placed on medications. IMPRESSION: 1. No evidence for cardiac cause of chest pain. 2. Chronic obstructive pulmonary disease. 3. Pulmonary mass. 4. Hypercholesterolemia. PLAN: Given these findings, the patient's cardiac status is stable. Awaiting biopsy results. Raul Velez MD
--- NOTE | 2018-01-18 14:52 | CP.PCM.DIS ---
<Maxi Cole - Last Filed: 01/18/18 18:41> Provider - Provider Date of Admission: 01/14/18 15:16 Attending physician: Carmen Kim MD Primary care physician: Seb Arguelles MD Consults: [facility] Time Spent in preparation of Discharge (in minutes): 35 Hospital Course - Lab Results Lab Results: Most Recent Lab Values WBC 7.4 10^3/ul (4.5-11.0) 01/17/18 06:44 RBC 3.43 10^6/uL (3.5-6.1) L 01/17/18 06:44 Hgb 9.8 g/dL (12.0-16.0) L 01/17/18 06:44 Hct 30.4 % (36.0-48.0) L 01/17/18 06:44 MCV 88.6 fl (80.0-105.0) 01/17/18 06:44 MCH 28.6 pg (25.0-35.0) 01/17/18 06:44 MCHC 32.2 g/dl (31.0-37.0) 01/17/18 06:44 RDW 14.0 % (11.5-14.5) 01/17/18 06:44 Plt Count 269 10^3/uL (120.0-450.0) 01/17/18 06:44 MPV 10.2 fl (7.0-11.0) 01/17/18 06:44 Gran % 60.8 % (50.0-68.0) 01/17/18 06:44 Lymph % (Auto) 21.7 % (22.0-35.0) L 01/17/18 06:44 [place] % (Auto) 12.4 % (1.0-6.0) H 01/17/18 06:44 Eos % (Auto) 4.7 % (1.5-5.0) 01/17/18 06:44 Baso % (Auto) 0.4 % (0.0-3.0) 01/17/18 06:44 Gran # 4.51 (1.4-6.5) 01/17/18 06:44 Lymph # (Auto) 1.6 (1.2-3.4) 01/17/18 06:44 [place] # (Auto) 0.9 (0.1-0.6) H 01/17/18 06:44 Eos # (Auto) 0.4 (0.0-0.7) 01/17/18 06:44 Baso # (Auto) 0.03 K/mm3 (0.0-2.0) 01/17/18 06:44 Neutrophils % (Manual) 67 % (50.0-70.0) 01/14/18 07:20 Lymphocytes % (Manual) 15 % (22.0-35.0) L 01/14/18 07:20 Monocytes % (Manual) 12 % (1.0-6.0) H 01/14/18 07:20 Eosinophils % (Manual) 5 % (0.0-3.0) H 01/14/18 07:20 Basophils % (Manual) 1 % (0.0-1.0) 01/14/18 07:20 Platelet Evaluation Normal (NORMAL) 01/14/18 07:20 PT 12.3 SECONDS (9.4-12.5) 01/13/18 15:21 INR 1.08 (0.93-1.08) 01/13/18 15:21 APTT 25.9 Seconds (25.1-36.5) 01/13/18 15:21 D-Dimer, Quantitative 521 ng/mL (0-243) H 01/13/18 15:21 pO2 45 mm/Hg (30-55) 01/13/18 15:21 VBG pH 7.37 (7.32-7.43) 01/13/18 15:21 VBG pCO2 59.0 (40-60) 01/13/18 15:21 VBG HCO3 34.1 mmol/l (21-28) H 01/13/18 15:21 VBG Total CO2 35.9 mmol.L (22-28) H 01/13/18 15:21 VBG O2 Sat (Calc) 82.2 % (40-65) H 01/13/18 15:21 VBG Base Excess 6.9 mmol/L (0.0-2.0) H 01/13/18 15:21 VBG Potassium 3.8 mmol/L (3.6-5.2) 01/13/18 15:21 Sodium 131.0 mmol/L (132-148) L 01/13/18 15:21 Chloride 91.0 mmol/L (98-107) L 01/13/18 15:21 Glucose 105 mg/dl (65-105) 01/13/18 15:21 Lactate 1.3 mmol/L (0.7-2.1) 01/13/18 15:21 FiO2 21.0 % 01/13/18 15:21 Sodium 139 mmol/L (132-148) 01/18/18 07:15 Potassium 4.5 mmol/L (3.6-5.0) 01/18/18 07:15 Chloride 100 mmol/L (98-107) 01/18/18 07:15 Carbon Dioxide 29 mmol/L (21-33) 01/18/18 07:15 Anion Gap 14 (10-20) 01/18/18 07:15 BUN 12 mg/dL (7-21) 01/18/18 07:15 Creatinine 0.8 mg/dl (0.7-1.2) 01/18/18 07:15 Est GFR ( Amer) > 60 01/18/18 07:15 Est GFR (Non-Af Amer) > 60 01/18/18 07:15 Random Glucose 93 mg/dL (70-110) 01/18/18 07:15 Calcium 8.5 mg/dL (8.4-10.5) 01/18/18 07:15 Ionized Calcium 4.6 mg/dL (4.80-5.60) L 01/17/18 06:44 Phosphorus 4.5 mg/dL (2.5-4.5) 01/15/18 06:00 Magnesium 1.5 mg/dL (1.7-2.2) L 01/18/18 07:15 Total Bilirubin 0.3 mg/dL (0.2-1.3) 01/17/18 06:44 AST 29 U/L (14-36) 01/17/18 06:44 ALT 30 U/L (7-56) 01/17/18 06:44 Alkaline Phosphatase 64 U/L (38-126) 01/17/18 06:44 Lactate Dehydrogenase 477 U/L (333-699) 01/13/18 15:21 Total Creatine Kinase 30 U/L (35-230) L 01/14/18 07:20 Troponin I 0.01 ng/mL 01/14/18 00:30 NT-Pro-B Natriuret Pep 883 pg/mL (0-450) H 01/13/18 15:21 Total Protein 6.6 g/dL (5.8-8.3) 01/17/18 06:44 Albumin 3.4 g/dL (3.0-4.8) 01/17/18 06:44 Globulin 3.2 gm/dL 01/17/18 06:44 Albumin/Globulin Ratio 1.1 (1.1-1.8) 01/17/18 06:44 Free T4 3.78 ng/dL (0.78-2.19) H 01/17/18 06:44 Thyroxine (T4) 15.3 ug/dL (5.5-11.0) H 01/17/18 06:44 TSH 3rd Generation < 0.02 mIU/mL (0.46-4.68) L 01/17/18 06:44 Venous Blood Potassium 3.8 mmol/L (3.6-5.2) 01/13/18 15:21 Urine Color Yellow (YELLOW) 01/13/18 16:17 Urine Appearance Clear (CLEAR) 01/13/18 16:17 Urine pH 6.0 (4.7-8.0) 01/13/18 16:17 Ur Specific [place] 1.010 (1.005-1.035) 01/13/18 16:17 Urine Protein Negative mg/dL (<30 mg/dL) 01/13/18 16:17 Urine Glucose (UA) Negative mg/dL (NEGATIVE) 01/13/18 16:17 Urine Ketones Trace mg/dL (NEGATIVE) H 01/13/18 16:17 Urine Blood Negative (NEGATIVE) 01/13/18 16:17 Urine Nitrate Negative (NEGATIVE) 01/13/18 16:17 Urine Bilirubin Negative (NEGATIVE) 01/13/18 16:17 Urine Urobilinogen 0.2 E.U./dL (<1 E.U./dL) 01/13/18 16:17 Ur Leukocyte Esterase Negative Diane/uL (NEGATIVE) 01/13/18 16:17 Thyroperoxidase Ab 3 IU/mL (<9) 01/15/18 06:00 - Hospital Course Hospital Course: 67 year old female with a past medical history of hypertension, dyslipidemia, hypercalcemia secondary to hyperparathyroidism s/p removal of parathyroid adenomas on 01/07/18, and GERD who presents with 6 months of exertional dyspnea, associated chest pain, and 5 days of generalized weakness. Initial diagnostic test revealed a D-dimer of 521, NT-Pro-BNP of 883, Magnesium of 0.8, Thyroxine of 6.12, and a TSH less than 0.02. Patient found to have a right lung mass which the radiologist further noted that "Although no infiltrate is appreciate bilaterally, a 6.6 x 3.4 cm mass is seen at the right lower lobe base within the posterior costophrenic sulcus clearly above the diaphragm and posterior to it but of uncertain etiology. This may represent extramedullary hematopoiesis with pulmonary neoplasm not favored but not completely excluded. Dense atelectasis is a limited possibility as well. No air bronchograms associated to suggest pneumonia. No definite left pulmonary mass. Central airways appear clear" and evidence of COPD on the CTA. Subsequently, a CT-guided lung biopsy was taken of the right lung mass and the patient was started empirically on antibiotics for suspicion of a Cryptogenic Organizing Pneumonia. For the patient 's COPD, pulmonology started a maintanence steroid inhaler and Xopenex around the clock. For the patient's hyperthyroidism, endocrinology was consulted and methimazole was started. A thyroid US was also performed in conjuction with a number of thryoid functioning tests. The patient underwent a nuclear stress test that was normal and an also had an echocardiogram that showed LVEF of 57%, a dilated left atrium, moderate tricuspid regurgitation, and moderate pulmonary hypertension. The patient was discharged with the below written recommendations and instructions. She was informed that the biospy results did not show malignancy. She will follow up with her PMD, Dr. Arguelles to further discuss her chronic medical problems. She was noted to be chronically hypomagnesemic. - Date & Time of H&P Date of H&P: 01/18/18 Time of H&P: 18:43 Discharge Exam - Head Exam Head Exam: ATRAUMATIC, NORMOCEPHALIC - Eye Exam Eye Exam: EOMI, Normal appearance - ENT Exam ENT Exam: Mucous Membranes Moist - Neck Exam Neck exam: Normal Inspection - Respiratory Exam Respiratory Exam: Decreased Breath Sounds (bilaterally), Prolonged Expiratory Phase, NORMAL BREATHING PATTERN. absent: Accessory Muscle Use - Cardiovascular Exam Cardiovascular Exam: RRR, +S1, +S2 - Back Exam Back exam: absent: CVA tenderness (L) - Neurological Exam Neurological exam: Alert, CN II-XII Intact, Oriented x3 - Psychiatric Exam Psychiatric exam: Normal Affect, Normal Mood - Skin Skin Exam: Dry, Intact, Normal Color, Warm Discharge Plan - Discharge Medications Prescriptions: Carvedilol [Coreg] 6.25 mg PO BID #60 tab Cefdinir [Omnicef] 300 mg PO BID #14 cap Fluticasone/Vilanterol [Breo Ellipta 100-25 Mcg INH] 1 each IH DAILY 30 Days blst.w.dev Furosemide [Lasix] 40 mg PO DAILY #0 tablet methIMAzole [Tapazole] 20 mg PO BID #60 tab Sildenafil [Revatio] 20 mg PO BID #60 tab - Follow Up Plan Condition: STABLE Disposition: HOME/ ROUTINE Instructions: Heart Healthy Diet, Shortness of Breath (Dyspnea) (DC), Low Magnesium Level, Weakness (GEN) Additional Instructions: 1) Patient to take take Methimazole 20 mg, twice a day, and only after a meals. 2) Patient to repeat thyroid studies in 4-6 weeks. Patient recommended to follow up with endocrinolgist, Dr. Finley 3) Patient is also to take Revatio (Sildenafil 20 mg) twice a day for presumed pulmonary hypertension. 4) Patient's Lasix was discontinued. 5) Patient to use Breo Ellipta inhaler one puff a day, at the same time every day, and to rinse mouth with water and expectorate to help reduce the risk of oropharyngeal candidiasis. 6) Patient to follow the discharge instruction in regards to medications, unless otherwise indicated by your Primary Medical Doctor. 7) Follow up with PMD in less than a week to review everything. Referrals: Seb Arguelles MD [Primary Care Provider] - <Carmen Kim - Last Filed: 01/19/18 17:13> Provider - Provider Date of Admission: 01/14/18 15:16 Attending physician: Carmen Kim MD Primary care physician: Seb Arguelles MD Hospital Course - Lab Results Lab Results: Most Recent Lab Values WBC 7.4 10^3/ul (4.5-11.0) 01/17/18 06:44 RBC 3.43 10^6/uL (3.5-6.1) L 01/17/18 06:44 Hgb 9.8 g/dL (12.0-16.0) L 01/17/18 06:44 Hct 30.4 % (36.0-48.0) L 01/17/18 06:44 MCV 88.6 fl (80.0-105.0) 01/17/18 06:44 MCH 28.6 pg (25.0-35.0) 01/17/18 06:44 MCHC 32.2 g/dl (31.0-37.0) 01/17/18 06:44 RDW 14.0 % (11.5-14.5) 01/17/18 06:44 Plt Count 269 10^3/uL (120.0-450.0) 01/17/18 06:44 MPV 10.2 fl (7.0-11.0) 01/17/18 06:44 Gran % 60.8 % (50.0-68.0) 01/17/18 06:44 Lymph % (Auto) 21.7 % (22.0-35.0) L 01/17/18 06:44 [place] % (Auto) 12.4 % (1.0-6.0) H 01/17/18 06:44 Eos % (Auto) 4.7 % (1.5-5.0) 01/17/18 06:44 Baso % (Auto) 0.4 % (0.0-3.0) 01/17/18 06:44 Gran # 4.51 (1.4-6.5) 01/17/18 06:44 Lymph # (Auto) 1.6 (1.2-3.4) 01/17/18 06:44 [place] # (Auto) 0.9 (0.1-0.6) H 01/17/18 06:44 Eos # (Auto) 0.4 (0.0-0.7) 01/17/18 06:44 Baso # (Auto) 0.03 K/mm3 (0.0-2.0) 01/17/18 06:44 Neutrophils % (Manual) 67 % (50.0-70.0) 01/14/18 07:20 Lymphocytes % (Manual) 15 % (22.0-35.0) L 01/14/18 07:20 Monocytes % (Manual) 12 % (1.0-6.0) H 01/14/18 07:20 Eosinophils % (Manual) 5 % (0.0-3.0) H 01/14/18 07:20 Basophils % (Manual) 1 % (0.0-1.0) 01/14/18 07:20 Platelet Evaluation Normal (NORMAL) 01/14/18 07:20 PT 12.3 SECONDS (9.4-12.5) 01/13/18 15:21 INR 1.08 (0.93-1.08) 01/13/18 15:21 APTT 25.9 Seconds (25.1-36.5) 01/13/18 15:21 D-Dimer, Quantitative 521 ng/mL (0-243) H 01/13/18 15:21 pO2 45 mm/Hg (30-55) 01/13/18 15:21 VBG pH 7.37 (7.32-7.43) 01/13/18 15:21 VBG pCO2 59.0 (40-60) 01/13/18 15:21 VBG HCO3 34.1 mmol/l (21-28) H 01/13/18 15:21 VBG Total CO2 35.9 mmol.L (22-28) H 01/13/18 15:21 VBG O2 Sat (Calc) 82.2 % (40-65) H 01/13/18 15:21 VBG Base Excess 6.9 mmol/L (0.0-2.0) H 01/13/18 15:21 VBG Potassium 3.8 mmol/L (3.6-5.2) 01/13/18 15:21 Sodium 131.0 mmol/L (132-148) L 01/13/18 15:21 Chloride 91.0 mmol/L (98-107) L 01/13/18 15:21 Glucose 105 mg/dl (65-105) 01/13/18 15:21 Lactate 1.3 mmol/L (0.7-2.1) 01/13/18 15:21 FiO2 21.0 % 01/13/18 15:21 Sodium 139 mmol/L (132-148) 01/18/18 07:15 Potassium 4.5 mmol/L (3.6-5.0) 01/18/18 07:15 Chloride 100 mmol/L (98-107) 01/18/18 07:15 Carbon Dioxide 29 mmol/L (21-33) 01/18/18 07:15 Anion Gap 14 (10-20) 01/18/18 07:15 BUN 12 mg/dL (7-21) 01/18/18 07:15 Creatinine 0.8 mg/dl (0.7-1.2) 01/18/18 07:15 Est GFR ( Amer) > 60 01/18/18 07:15 Est GFR (Non-Af Amer) > 60 01/18/18 07:15 Random Glucose 93 mg/dL (70-110) 01/18/18 07:15 Calcium 8.5 mg/dL (8.4-10.5) 01/18/18 07:15 Ionized Calcium 5.0 mg/dL (4.80-5.60) 01/18/18 07:15 Phosphorus 4.5 mg/dL (2.5-4.5) 01/15/18 06:00 Magnesium 1.5 mg/dL (1.7-2.2) L 01/18/18 07:15 Total Bilirubin 0.3 mg/dL (0.2-1.3) 01/17/18 06:44 AST 29 U/L (14-36) 01/17/18 06:44 ALT 30 U/L (7-56) 01/17/18 06:44 Alkaline Phosphatase 64 U/L (38-126) 01/17/18 06:44 Lactate Dehydrogenase 477 U/L (333-699) 01/13/18 15:21 Total Creatine Kinase 30 U/L (35-230) L 01/14/18 07:20 Troponin I 0.01 ng/mL 01/14/18 00:30 NT-Pro-B Natriuret Pep 883 pg/mL (0-450) H 01/13/18 15:21 Total Protein 6.6 g/dL (5.8-8.3) 01/17/18 06:44 Albumin 3.4 g/dL (3.0-4.8) 01/17/18 06:44 Globulin 3.2 gm/dL 01/17/18 06:44 Albumin/Globulin Ratio 1.1 (1.1-1.8) 01/17/18 06:44 Free T4 3.78 ng/dL (0.78-2.19) H 01/17/18 06:44 Thyroxine (T4) 15.3 ug/dL (5.5-11.0) H 01/17/18 06:44 TSH 3rd Generation < 0.02 mIU/mL (0.46-4.68) L 01/17/18 06:44 Thyroid Stim Immunoglob <89 % baseline (<140) 01/15/18 06:00 Venous Blood Potassium 3.8 mmol/L (3.6-5.2) 01/13/18 15:21 Urine Color Yellow (YELLOW) 01/13/18 16:17 Urine Appearance Clear (CLEAR) 01/13/18 16:17 Urine pH 6.0 (4.7-8.0) 01/13/18 16:17 Ur Specific [place] 1.010 (1.005-1.035) 01/13/18 16:17 Urine Protein Negative mg/dL (<30 mg/dL) 01/13/18 16:17 Urine Glucose (UA) Negative mg/dL (NEGATIVE) 01/13/18 16:17 Urine Ketones Trace mg/dL (NEGATIVE) H 01/13/18 16:17 Urine Blood Negative (NEGATIVE) 01/13/18 16:17 Urine Nitrate Negative (NEGATIVE) 01/13/18 16:17 Urine Bilirubin Negative (NEGATIVE) 01/13/18 16:17 Urine Urobilinogen 0.2 E.U./dL (<1 E.U./dL) 01/13/18 16:17 Ur Leukocyte Esterase Negative Diane/uL (NEGATIVE) 01/13/18 16:17 Thyroperoxidase Ab 3 IU/mL (<9) 01/15/18 06:00 Attending/Attestation - Attestation I have personally seen and examined this patient.: Yes I have fully participated in the care of the patient.: Yes I have reviewed all pertinent clinical information, including history, physical exam and plan: Yes Notes (Text): 01/19/18 17:10 attending note; Patient seen and examined with resident. Patient is a 67 year old female with past medical history of hypertension, dyslipidemia, hyperparathyroidism s/p parathyroidectomy, and history of tobacco use who presented with complaint of chest pain and dyspnea. Serial cardiac enzymes were negative and ACS was ruled out. She was seen by cardiology and underwent cardiac stress test which was negative. CT chest study was negative for PE but showed 6.6 x 3.4 cm lung mass in the right lower lobe. Pulmonary evaluation and IR evaluation were appreciated and patient is s/p lung biopsy on Wednesday. currently on xopenex and budesonide. Case was discussed with Dr. Bautista today. TSH was low with elevated FT4. Endocrinology evaluation was appreciated who started methimazole. needs repeat labs in 4-6 weeks. Patient was counselled on smoking abstinence. preliminary pathology report reviewed with pathologist. Shows inflammatory cells and fibrosis. Possibility of inflammatory pseudotumor are not dealing of fibrosis suspected. Immunochemical stain pending. Needs to follow up official result as outpatient. Hypomagnesemia; IV magnesium given. Dietary education given. Continue by mouth magnesium as outpatient. Repeat magnesium level in 2-3 days. Discharge home today. Medication list given to the patient. Upon discharge the patient will follow-up with PMD . PMD updated about the hospital course and follow-up plan.
[2018-01-18 18:59] LABS: TSI <89 % baseline (<140)
== END 2018-01-18 17:17 | disposition home or self-care (01) | DRG 181 ==
LOC: ED 14:24 → ERH 17:43 → 2RNO 20:06 → OBSVTOIN 01-14 15:16 → 5RNO 01-17 17:18
PROVIDERS: ADMIT Internal Medicine; ATTEND Internal Medicine
PROC: 0BBF3ZX Excision of Right Lower Lung Lobe, Percutaneous Approach, Diagnostic (ICD-10-PCS; principal; 2018-01-14 15:00)
DX: D49.1 Neoplasm of unspecified behavior of respiratory system (principal); J84.116 Cryptogenic organizing pneumonia; I50.1 Left ventricular failure, unspecified; J98.11 Atelectasis; E78.00 Pure hypercholesterolemia, unspecified; E83.42 Hypomagnesemia; E78.5 Hyperlipidemia, unspecified; I11.0 Hypertensive heart disease with heart failure; I27.20 Pulmonary hypertension, unspecified; J43.2 Centrilobular emphysema; E21.3 Hyperparathyroidism, unspecified; J44.9 Chronic obstructive pulmonary disease, unspecified; K21.9 Gastro-esophageal reflux disease without esophagitis; E05.00 Thyrotoxicosis with diffuse goiter without thyrotoxic crisis or storm; E21.0 Primary hyperparathyroidism; I07.1 Rheumatic tricuspid insufficiency; D64.9 Anemia, unspecified; Z79.82 Long term (current) use of aspirin; Z88.5 Allergy status to narcotic agent; Z87.891 Personal history of nicotine dependence; Z86.73 Personal history of transient ischemic attack (TIA), and cerebral infarction without residual deficits

== ENCOUNTER 2018-03-04 06:15 | Day surgery (SDC) | payer MEDICARE, OTHER ==
[2018-03-03 06:56] VITALS: BMI 23.7
[2018-03-04 07:14] LABS: BASO # 0.04 K/mm3 (0.0-2.0); BASO % 0.6 % (0.0-3.0); EOS # 0.3 (0.0-0.7); EOS % 3.6 % (1.5-5.0); GRAN # 4.77 (1.4-6.5); GRAN % 69.5 % (50.0-68.0); HEMOGLOBIN 10.3 g/dL (12.0-16.0); LYMPH # 1.2 (1.2-3.4); LYMPH % 17.8 % (22.0-35.0); MEAN CELL VOLUME 84.9 fl (80.0-105.0); MEAN CORPUSCULAR HEMOGLOBIN 27.7 pg (25.0-35.0); MEAN CORPUSCULAR HGB CONC 32.6 g/dl (31.0-37.0); MEAN PLATELET VOLUME 9.3 fl (7.0-11.0); MONO # 0.6 (0.1-0.6); MONO % 8.5 % (1.0-6.0); RBC 3.72 10^6/uL (3.5-6.1); RED CELL DISTRIBUTION WIDTH 14.2 % (11.5-14.5); WHITE BLOOD COUNT 6.9 10^3/ul (4.5-11.0)
[2018-03-04 07:27] LABS: INR 0.95; PROTHROMBIN TIME 10.9 SECONDS (9.4-12.5)
[2018-03-04 07:30] LABS: PARTIAL THROMBOPLASTIN TIME 27.2 Seconds (25.1-36.5)
[2018-03-04 07:32] LABS: CALCIUM 9.3 mg/dL (8.4-10.5)
[2018-03-04] MEDS ORDERED: Midazolam 2 MG/2 ML VIAL ONE ×2 (07:59→08:24)
[2018-03-04 09:34] VITALS: TEMP 98.1
[2018-03-04] MEDS ORDERED: Sodium Chloride 0.9% 1,000 ML IV SCH (10:15)
--- NOTE | 2018-03-04 13:08 | CARDCATH ---
Copied To: Raul Velez MD Attending MD: Raul Velez MD PROCEDURE DATE: 03/04/2018 HISTORY: The patient is a 68-year-old woman with a long history of smoking and documented COPD who presents with pulmonary hypertension on noninvasive testing. She also complains of intermittent chest discomfort. Because of this, cardiac catheterization was recommended. PROCEDURES: Right and left heart catheterization with right heart measurements, coronary arteriography and left ventriculogram and supra-aortic valvular injection. The right femoral artery was cannulated with 6-Malian sheath. The right femoral vein was cannulated with a 7-Malian sheath. There were no complications. I performed moderate sedation, which included the presence of an independent trained observer that assisted in monitoring the patient's level of consciousness and physiologic status. After administration of Versed and fentanyl, my intra service time was 30 minutes. The findings on catheterization included hemodynamic data which revealed a right atrial mean pressure of 7 mmHg. RV pressure: RV pressure was 52/10 mmHg. Pulmonary artery pressures were 50/25 mmHg with a mean of 33 mmHg. Mean pulmonary capillary wedge pressure was 22 mmHg. There was no gradient across the aortic valve. Left ventriculogram was performed in the WILLARD projection. In the WILLARD projection, wall motion is within normal limits. EF of 60%. Her coronary anatomy revealed a right dominant circulation. The RCA was within normal limits. The left main artery was unremarkable and found to be within normal limits. The LAD and diagonal vessels were within normal limits. The circumflex artery and obtuse marginal branches were within normal limits. Angio-Seal was used to close the right femoral artery site. Manual compression was used to close the vein site. The patient tolerated the procedure well. In summary, the procedure reveals: 1. Moderate pulmonary hypertension. 2. Normal LV function. 3. No documented valvular disease. 4. Unremarkable coronary arteries. Given these findings, the patient's followup will be with Pulmonary for consideration of aggressive treatment for pulmonary hypertension. Raul Velez MD
[2018-03-04 15:15] VITALS: RESP 20
[2018-03-04 15:16] VITALS: BP 118/62; PULSE 60; O2SAT 93
--- NOTE | 2018-03-04 20:55 | CARD ---
APPROVED REPORT Date of service: 03/04/2018 EKG Measurement Heart [id number] <Conclusion> Normal sinus rhythm T wave abnormality, consider anterior ischemia Abnormal ECG
== END 2018-03-04 15:22 | disposition home or self-care (01) ==
LOC: CATH 06:15
PROVIDERS: ATTEND Internal Medicine Cardiovascular Disease
DX: I27.20 Pulmonary hypertension, unspecified (principal); R06.00 Dyspnea, unspecified; E78.5 Hyperlipidemia, unspecified; J44.9 Chronic obstructive pulmonary disease, unspecified; E83.42 Hypomagnesemia; Z88.1 Allergy status to other antibiotic agents; Z88.5 Allergy status to narcotic agent; Z87.891 Personal history of nicotine dependence
CPT/HCPCS: 36415; 80048; 80061; 85025; 85610; 85730; 86850; 86900; 93005; 93460; 99152; C1760; C1769; C1894; C2629; J2250; J3010; J7030

== ENCOUNTER 2018-08-09 10:56 | Outpatient (CLI) | payer MEDICARE | END 2018-08-09 10:57 | disposition home or self-care (01) | LOC: CARDIO 10:56 | DX: I27.0 Primary pulmonary hypertension (principal); R06.02 Shortness of breath ==